=== PATIENT | male | born 1965 | race Caucasian/White ===

== ENCOUNTER 2018-10-21 11:53 | Emergency (ER) | payer SELFPAY ==
--- NOTE | 2018-10-21 13:03 | ER ---
Nurse's Notes [facility] Name: Mauro Parsons Age: 53 yrs Sex: Male : 1965 Arrival Date: 10/21/2018 Time: 11:56 Bed 30 Private MD: out of town, doctor Diagnosis: Cracked tooth Presentation: 10/21 12:03 Presenting complaint: Patient states: i have a toothache on the upper back right, tw2 coming and going for a while, now its constant. Transition of care: patient was not received from another setting of care. Onset of symptoms was October 21, 2018. Risk Assessment: Do you want to hurt yourself or someone else? Patient reports no desire to harm self or others. Initial Sepsis Screen: Does the patient meet any 2 criteria? No. Patient's initial sepsis screen is negative. Does the patient have a suspected source of infection? No. Patient's initial sepsis screen is negative. Care prior to arrival: None. 12:03 Method Of Arrival: Ambulatory tw2 12:03 Acuity: JENNYFER 4 tw2 Triage Assessment: 12:05 General: Appears in no apparent distress. Behavior is calm, cooperative, appropriate tw2 for age. Pain: Complains of pain in upper right third molar. EENT: Reports pain dental pain. Historical: - Allergies: 12:04 No Known Allergies; tw2 - Home Meds: 12:04 lisinopril 10 mg Oral tab 1 tab once daily [Active]; Risperdal 4 mg Oral tab 1 tab once tw2 daily [Active]; Tegretol 200 mg Oral tab 2 tabs every 12 hours [Active]; Neurontin 300 mg Oral cap 1 cap 3 times per day [Active]; - PMHx: 12:04 Hypertension; Depression; Anxiety; tw2 - Immunization history:: Adult Immunizations. - Social history:: Smoking status: Patient uses tobacco products, ecigarette with nicotine. - Ebola Screening: : Patient denies travel to an Ebola-affected area in the 21 days before illness onset. Screenin:00 Abuse screen: Denies threats or abuse. Denies injuries from another. Nutritional kr2 screening: No deficits noted. Tuberculosis screening: No symptoms or risk factors identified. Fall Risk None identified. Assessment: 13:09 General: Appears in no apparent distress. uncomfortable, well groomed, well developed, kr2 well nourished, Behavior is calm, cooperative, appropriate for age. Pain: Complains of pain in upper right third molar Pain radiates to mouth Pain currently is 5 out of 10 on a pain scale. Quality of pain is described as aching, Is continuous, Alleviated by medications, Aggravated by eating, drinking. Neuro: Level of Consciousness is awake, alert, obeys commands, Oriented to person, place, time, situation, Appropriate for age. Cardiovascular: Capillary refill < 3 seconds in bilateral fingers Patient's skin is warm and dry. Respiratory: Airway is patent Respiratory effort is even, unlabored, Respiratory pattern is regular, symmetrical. GI: Patient currently denies nausea, vomiting. EENT: Oral mucosa is moist. Poor dentition noted. Derm: Skin is intact, is healthy with good turgor, Skin is pink, warm \T\ dry. Musculoskeletal: Circulation, motion, and sensation intact. Vital Signs: 12:03 BP 135 / 81; Pulse 98; Resp 17; Temp 98.1(TE); Pulse Ox 97% on R/A; Pain 10/10; tw2 ED Course: 11:56 Patient arrived in ED. sb2 11:56 out of town, doctor is Private Physician. sb2 12:03 Triage completed. tw2 12:04 Arm band placed on. tw2 12:52 Jackeline Crowder, [place] is Primary Nurse. kr2 12:52 [facility] Flores [facility] nh 12:52 Angel Franklin MD is Attending Physician. nh 13:00 Patient has correct armband on for positive identification. Bed in low position. Call kr2 light in reach. Side rails up X 1. Pulse ox on. NIBP on. Door closed. Head of bed elevated. 13:11 No provider procedures requiring assistance completed. Patient did not have IV access kr2 during this emergency room visit. Administered Medications: No medications were administered Outcome: 13:02 Discharge ordered by . nh 13:11 Discharged to home ambulatory. kr2 13:11 Condition: good 13:11 Discharge instructions given to patient, Instructed on discharge instructions, follow up and referral plans. medication usage, Demonstrated understanding of instructions, follow-up care, medications, Prescriptions given X 2. 13:12 Patient left the ED. kr2 Signatures: Alice Flores FNP SOCIAL SERVICE ASSISTANT Jailene Langley, RN RN tw2 Jackeline Crowder, RN RN kr2 Angeles, Kanika sb2
--- NOTE | 2018-10-21 13:03 | EDPHYS ---
Physician Documentation [facility] Name: Mauro Parsons Age: 53 yrs Sex: Male : 1965 Arrival Date: 10/21/2018 Time: 11:56 Bed 30 Private MD: out of town, doctor ED Physician Angel Franklin HPI: 10/21 13:00 This 53 yrs old Male presents to ER via Ambulatory with complaints of nh Toothache. 13:00 The patient presents with broken tooth/teeth. The problem is located in the upper right nh third molar. Onset: The symptoms/episode began/occurred 2 week(s) ago. Duration: The symptoms are continuous. Modifying factors: The symptoms are alleviated by nothing, the symptoms are aggravated by chewing. Associated signs and symptoms: The patient has no apparent associated signs or symptoms. Severity of symptoms: At their worst the symptoms were moderate, just prior to arrival, in the emergency department the symptoms are unchanged. The patient has not experienced similar symptoms in the past. The patient has not recently seen a physician. Historical: - Allergies: 12:04 No Known Allergies; tw2 - Home Meds: 12:04 lisinopril 10 mg Oral tab 1 tab once daily [Active]; Risperdal 4 mg Oral tab 1 tab once tw2 daily [Active]; Tegretol 200 mg Oral tab 2 tabs every 12 hours [Active]; Neurontin 300 mg Oral cap 1 cap 3 times per day [Active]; - PMHx: 12:04 Hypertension; Depression; Anxiety; tw2 - Immunization history:: Adult Immunizations. - Social history:: Smoking status: Patient uses tobacco products, ecigarette with nicotine. - Ebola Screening: : Patient denies travel to an Ebola-affected area in the 21 days before illness onset. ROS: 13:00 Constitutional: Negative for fever, chills, and weight loss, Eyes: Negative for injury, nh pain, redness, and discharge, Neck: Negative for injury, pain, and swelling, Cardiovascular: Negative for chest pain, palpitations, and edema, Respiratory: Negative for shortness of breath, cough, wheezing, and pleuritic chest pain, Abdomen/GI: Negative for abdominal pain, nausea, vomiting, diarrhea, and constipation, Back: Negative for injury and pain, : Negative for injury, bleeding, discharge, and swelling, MS/Extremity: Negative for injury and deformity, Skin: Negative for injury, rash, and discoloration, Neuro: Negative for headache, weakness, numbness, tingling, and seizure, Psych: Negative for depression, anxiety, suicide ideation, homicidal ideation, and hallucinations, Allergy/Immunology: Negative for hives, rash, and allergies, Endocrine: Negative for neck swelling, polydipsia, polyuria, polyphagia, and marked weight changes, Hematologic/Lymphatic: Negative for swollen nodes, abnormal bleeding, and unusual bruising. 13:00 ENT: Positive for Teeth pain Exam: 13:00 Constitutional: This is a well developed, well nourished patient who is awake, alert, nh and in no acute distress. Head/Face: Normocephalic, atraumatic. Eyes: Pupils equal round and reactive to light, extra-ocular motions intact. Lids and lashes normal. Conjunctiva and sclera are non-icteric and not injected. Cornea within normal limits. Periorbital areas with no swelling, redness, or edema. Neck: Trachea midline, no thyromegaly or masses palpated, and no cervical lymphadenopathy. Supple, full range of motion without nuchal rigidity, or vertebral point tenderness. No Meningismus. Chest/axilla: Normal chest wall appearance and motion. Nontender with no deformity. No lesions are appreciated. Cardiovascular: Regular rate and rhythm with a normal S1 and S2. No gallops, murmurs, or rubs. Normal PMI, no JVD. No pulse deficits. Respiratory: Lungs have equal breath sounds bilaterally, clear to auscultation and percussion. No rales, rhonchi or wheezes noted. No increased work of breathing, no retractions or nasal flaring. Abdomen/GI: Soft, non-tender, with normal bowel sounds. No distension or tympany. No guarding or rebound. No evidence of tenderness throughout. Back: No spinal tenderness. No costovertebral tenderness. Full range of motion. Skin: Warm, dry with normal turgor. Normal color with no rashes, no lesions, and no evidence of cellulitis. MS/ Extremity: Pulses equal, no cyanosis. Neurovascular intact. Full, normal range of motion. Neuro: Awake and alert, GCS 15, oriented to person, place, time, and situation. Cranial nerves II-XII grossly intact. Motor strength 5/5 in all extremities. Sensory grossly intact. Cerebellar exam normal. Normal gait. Psych: Awake, alert, with orientation to person, place and time. Behavior, mood, and affect are within normal limits. 13:00 ENT: External ear(s): are unremarkable, Ear canal(s): are normal, TM's: are normal, Nose: is normal, Mouth: is normal, Posterior pharynx: is normal, Dental exam: avulsion, complete, specifically the upper right third molar. Vital Signs: 12:03 BP 135 / 81; Pulse 98; Resp 17; Temp 98.1(TE); Pulse Ox 97% on R/A; Pain 10/10; tw2 MDM: 12:52 Patient medically screened. md 13:00 Data reviewed: vital signs, nurses notes, and as a result, I will discharge patient. md Counseling: I had a detailed discussion with the patient and/or guardian regarding: the historical points, exam findings, and any diagnostic results supporting the discharge/admit diagnosis, the need for outpatient follow up, to return to the emergency department if symptoms worsen or persist or if there are any questions or concerns that arise at home. Administered Medications: No medications were administered Disposition: 13:57 Co-signature as Attending Physician, Angel Franklin MD. rn Disposition: 10/21/18 13:02 Discharged to Home. Impression: Cracked tooth. - Condition is Stable. - Discharge Instructions: Dental Pain. - Prescriptions for Clindamycin HCl 300 mg Oral Capsule - take 1 capsule by ORAL route every 6 hours for 10 days; 40 capsule. Naprosyn 500 mg Oral Tablet - take 1 tablet by ORAL route 2 times per day take with food; 30 tablet. - Medication Reconciliation Form, Thank You Letter, Antibiotic Education, Prescription Opioid Use form. - Follow up: Private Physician; When: 2 - 3 days; Reason: Recheck today's complaints. - Problem is new. - Symptoms are unchanged. Signatures: Alice Flores, REGISTERED NURSE OBSTETRICS REGISTERED NURSE OBSTETRICS md Angel Franklin MD MD rn Wise, Tara, RN RN tw2 Jackeline Crowder RN RN kr2 Corrections: (The following items were deleted from the chart) 13:12 13:02 10/21/2018 13:02 Discharged to Home. Impression: Cracked tooth. Condition is kr2 Stable. Forms are Medication Reconciliation Form, Thank You Letter, Antibiotic Education, Prescription Opioid Use. Follow up: Private Physician; When: 2 - 3 days; Reason: Recheck today's complaints. Problem is new. Symptoms are unchanged. nh
== END 2018-10-21 13:12 | disposition home or self-care (01) ==
LOC: ER 11:53
DX: K03.81 Cracked tooth (principal); I10 Essential (primary) hypertension; F41.9 Anxiety disorder, unspecified; F32.9 Major depressive disorder, single episode, unspecified; Z72.0 Tobacco use
CPT/HCPCS: 99283

== ENCOUNTER 2020-10-06 12:10 | Emergency (ER) | payer OTHER ==
--- NOTE | 2020-10-06 13:13 | RAD REPORT ---
EXAM DESCRIPTION: CT - Head C Spine Mpr Wo Con - 10/06/2020 12:50 pm CLINICAL HISTORY: Numbness and radiculopathy COMPARISON: None. TECHNIQUE: Computed axial tomography of the head and cervical spine was obtained. Sagittal and coronal reconstruction was performed. All CT scans are performed using dose optimization technique as appropriate and may include automated exposure control or mA/KV adjustment according to patient size. FINDINGS: An intracranial bleed is not seen. The ventricles are normal in caliber. An extra-axial fl uid collection is not noted.Fluid within the visualized sinuses and mastoids is not seen A cervical fracture is not visualized. No dislocation is noted. Spondylosis involves C5-6 and C6-7 co nsisting of disc bulge and osteophytes. This results in mild to moderate narrowing of the right neura l foramina. Loss of the normal lordosis of the cervical spine may be secondary to muscle spasm or pos itioning IMPRESSION: No acute intracranial abnormality is seen. A cervical fracture is not visualized. 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
--- NOTE | 2020-10-06 13:41 | ER ---
Nurse's Notes [facility] Name: Mauro Parsons Age: 55 yrs Sex: Male : 1965 Arrival Date: 10/06/2020 Time: 12:12 Bed 16 Private MD: Diagnosis: Radiculopathy, cervical region Presentation: 10/06 12:27 Chief complaint: Patient states: BUE numbness/tingling x 1 week, chronic back pain. sv Coronavirus screen: Client denies travel out of the [place] in the last 14 days. At this time, the client does not indicate any symptoms associated with coronavirus-19. Ebola Screen: No symptoms or risks identified at this time. Initial Sepsis Screen: Does the patient meet any 2 criteria? No. Patient's initial sepsis screen is negative. Does the patient have a suspected source of infection? No. Patient's initial sepsis screen is negative. Risk Assessment: Do you want to hurt yourself or someone else? Patient reports no desire to harm self or others. Onset of symptoms was September 29, 2020. 12:27 Method Of Arrival: Ambulatory sv 12:27 Acuity: JENNYFER 3 sv Historical: - Allergies: 12:29 No Known Allergies; sv - PMHx: 12:29 Anxiety; Depression; Hypertension; Glaucoma; sv - Immunization history:: Flu vaccine is not up to date. - Social history:: Smoking status: Reported history of juuling and/or vaping. Screenin:30 Abuse screen: Denies threats or abuse. Nutritional screening: No deficits noted. vg1 Tuberculosis screening: No symptoms or risk factors identified. Fall Risk No fall in past 12 months (0 pts). No secondary diagnosis (0 pts). No IV (0 pts). Ambulatory Aid- None/Bed Rest/Nurse Assist (0 pts). Gait- Normal/Bed Rest/Wheelchair (0 pts) Mental Status- Oriented to own ability (0 pts). Total Dumont Fall Scale indicates No Risk (0-24 pts). Assessment: 12:30 General: Appears in no apparent distress. Behavior is calm, cooperative. Pain: vg1 Complains of pain in mid upper back Pain radiates to LYNDON arms Pain currently is 8 out of 10 on a pain scale. Neuro: Level of Consciousness is awake, alert, obeys commands, Oriented to person, place, time, situation, Legal Operations Manager are equal bilaterally Speech is normal, Facial symmetry appears normal. Cardiovascular: Patient's skin is warm and dry. Respiratory: Airway is patent Respiratory effort is even, unlabored, Respiratory pattern is regular, symmetrical. GI: No signs and/or symptoms were reported involving the gastrointestinal system. : No signs and/or symptoms were reported regarding the genitourinary system. EENT: No signs and/or symptoms were reported regarding the EENT system. Derm: Skin is pink, warm \T\ dry. Musculoskeletal: Range of motion: intact in all extremities. 12:35 Reassessment: Patient states has hydrocortisone patches on R hip, lower back, and upper vg1 back for pain control. 13:15 Reassessment: Patient went outside to smoke a cigarette. vg1 13:22 Reassessment: Patient appears in no apparent distress at this time. No changes from vg1 previously documented assessment. Patient and/or family updated on plan of care and expected duration. Pain level reassessed. Patient is alert, oriented x 3, equal unlabored respirations, skin warm/dry/pink. Patient back in room. Vital Signs: 12:27 BP 163 / 95; Pulse 71; Resp 16; Temp 99; Pulse Ox 98% ; Weight 104.33 kg; Height 5 ft. sv 10 in. (177.80 cm); Pain 0/10; 13:00 BP 143 / 74; Pulse 74; Resp 14; Pulse Ox 98% on R/A; vg1 12:27 Body Mass Index 33.00 (104.33 kg, 177.80 cm) sv ED Course: 12:12 Patient arrived in ED. ds1 12:24 Love Lester, [place] is Primary Nurse. vg1 12:27 Mateo Marr PA is PHCP. jmm 12:27 Jay Brice MD is Attending Physician. jmm 12:28 Triage completed. sv 12:29 Arm band placed on. sv 12:35 Patient has correct armband on for positive identification. Bed in low position. Call vg1 light in reach. 12:51 CT Head C Spine In Process Unspecified. EDMS 14:10 No provider procedures requiring assistance completed. Patient did not have IV access vg1 during this emergency room visit. Administered Medications: No medications were administered Outcome: 13:41 Discharge ordered by . jmm 14:10 Discharged to home vg1 14:10 Condition: stable 14:10 Discharge instructions given to patient, Instructed on discharge instructions, follow up and referral plans. medication usage, Demonstrated understanding of instructions, follow-up care, medications, Prescriptions given X 1. 14:13 Patient left the ED. vg1 Signatures: Dispatcher [employer] Rox Wall, RN RN Mateo Huang PA PA jmm Sanford, Demi ds1 Love Lester, RN RN vg1
--- NOTE | 2020-10-06 13:41 | EDPHYS ---
Physician Documentation [facility] Name: Mauro Parsons Age: 55 yrs Sex: Male : 1965 Arrival Date: 10/06/2020 Time: 12:12 Bed 16 Private MD: ED Physician Jay Brice HPI: 10/06 12:32 This 55 yrs old Male presents to ER via Ambulatory with complaints of Arm jmm Pain, Back Pain, Numbness. 12:32 The patient or guardian complains of pain. Onset: The symptoms/episode began/occurred jmm gradually, 1 week(s) ago. Modifying factors: The symptoms are alleviated by nothing. the symptoms are aggravated by movement. This is a 55 year old male with a history of anxiety, depression, htn, glaucoma that presents ot the ED with complaints of neck pain with numbness radiating to his arms. Denies weakness. Denies fever. [facility]. . Historical: - Allergies: 12:29 No Known Allergies; sv - PMHx: 12:29 Anxiety; Depression; Hypertension; Glaucoma; sv - Immunization history:: Flu vaccine is not up to date. - Social history:: Smoking status: Reported history of juuling and/or vaping. ROS: 12:32 Constitutional: Negative for fever, chills, and weight loss, Cardiovascular: Negative jmm for chest pain, palpitations, and edema, Respiratory: Negative for shortness of breath, cough, wheezing, and pleuritic chest pain. 12:32 Neck: Positive for pain with movement. 12:32 MS/extremity: Positive for pain. 12:32 All other systems are negative. Exam: 12:32 Constitutional: This is a well developed, well nourished patient who is awake, alert, jmm and in no acute distress. Head/Face: atraumatic. Eyes: EOMI, no conjunctival erythema appreciated ENT: Moist Mucus Membranes Neck: Trachea midline, Supple Chest/axilla: Normal chest wall appearance and motion. Cardiovascular: Regular rate and rhythm. No edema appreciated Respiratory: Normal respirations, no respiratory distress appreciated Abdomen/GI: Non distended, soft Back: Normal ROM Skin: General appearance color normal MS/ Extremity: Moves all extremities, no obvious deformities appreciated, no edema noted to the lower extremities Neuro: Awake and alert, normal gait Psych: Behavior is normal, Mood is normal, Patient is cooperative and pleasant 12:32 Musculoskeletal/extremity: full emr implementation specialist strength bilaterally. 12:32 Skin: Appearance: Color: normal in color. 12:32 Neuro: Orientation: is normal, Mentation: is normal, Memory: is normal. 12:32 Psych: Behavior/mood is pleasant, cooperative. Vital Signs: 12:27 BP 163 / 95; Pulse 71; Resp 16; Temp 99; Pulse Ox 98% ; Weight 104.33 kg; Height 5 ft. sv 10 in. (177.80 cm); Pain 0/10; 13:00 BP 143 / 74; Pulse 74; Resp 14; Pulse Ox 98% on R/A; vg1 12:27 Body Mass Index 33.00 (104.33 kg, 177.80 cm) sv MDM: 12:32 Patient medically screened. estefanía 13:40 Data reviewed: vital signs, nurses notes. Counseling: I had a detailed discussion with matheus the patient and/or guardian regarding: the historical points, exam findings, and any diagnostic results supporting the discharge/admit diagnosis, radiology results, the need for outpatient follow up, to return to the emergency department if symptoms worsen or persist or if there are any questions or concerns that arise at home. Medical screen evaluation completed. [facility] emergency medical condition absent. ED course: Piping Design Specialist strength intact. Ad[facility]. Patient is otherwise given strict return precautions. Patient understood and agrees with the plan of care. . 10/06 12:37 Order name: CT Head C Spine; Complete Time: 13:24 [facility] Administered Medications: No medications were administered Disposition: 10/07 11:50 Co-signature as Attending Physician, Jay Brice MD I agree with the assessment and [facility] plan of care. Disposition: 10/06/20 13:41 Discharged to Home. Impression: Radiculopathy, cervical region. - Condition is Stable. - Discharge Instructions: Cervical Radiculopathy. - Prescriptions for Zanaflex 4 mg Oral Tablet - take 1 tablet by ORAL route every 8 hours As needed; 20 tablet. - Medication Reconciliation Form, Thank You Letter, Antibiotic Education, Prescription Opioid Use form. - Follow up: Private Physician; When: 2 - 3 days; Reason: Recheck today's complaints, Continuance of care, Re-evaluation by your physician. Signatures: Dispatcher [employer] Rox Wall, RN RN Jay Perales MD MD cha Mickail, Joel, PA PA jmm Garcia, Victoria, RN RN vg1 Corrections: (The following items were deleted from the chart) 10/06 14:13 13:41 10/06/2020 13:41 Discharged to Home. Impression: Radiculopathy, cervical region. vg1 Condition is Stable. Forms are Medication Reconciliation Form, Thank You Letter, Antibiotic Education, Prescription Opioid Use. Follow up: Private Physician; When: 2 - 3 days; Reason: Recheck today's complaints, Continuance of care, Re-evaluation by your physician. matheus
[2020-10-08 17:08] VITALS: TEMP 98.2; O2SAT 95
[2020-10-08 17:10] VITALS: BP 130/118
== END 2020-10-06 14:13 | disposition home or self-care (01) ==
LOC: ER 12:10
DX: M54.12 Radiculopathy, cervical region (principal); I10 Essential (primary) hypertension
CPT/HCPCS: 70450; 72125; 99283

== ENCOUNTER 2021-01-12 13:25 | Emergency (ER) | payer OTHER ==
[2021-01-12] MEDS ORDERED: TETRACAINE HCL 0.5% 4ML OPTH ONE ×2 (14:17→15:01)
[2021-01-12] MEDS ORDERED: TIMOLOL MALEATE 0.5% OPTH 5 ML BTL OPTH ONE (15:15)
--- NOTE | 2021-01-12 15:17 | EDPHYS ---
Physician Documentation [facility] Name: Mauro Parsons Age: 55 yrs Sex: Male : 1965 Arrival Date: 01/12/2021 Time: 13:25 Bed 13 Private MD: ED Physician Angel Franklin HPI: 01/12 14:23 This 55 yrs old Male presents to ER via Ambulatory with complaints of Loss Of pm1 Vision, Redness of Eye, Post Surgical Pain. 14:23 The patient is experiencing blurred vision, decreased vision, The patient sustained pm1 None. to the right eye. Onset: The symptoms/episode began/occurred 3 hour(s) ago. Duration: the symptoms are continuous. Aggravated by nothing. Alleviated by nothing. Associated signs and symptoms: Pertinent positives: right eye pain. Severity of symptoms: in the emergency department the symptoms are worse. The patient has been recently seen by a physician: Dr. Melina Galvez MD. Had surgical implant to right eye for glaucoma treatment on . Patient reports onset of pain to right eye last evening and woke up with more right eye pain this AM. 3 hours prior to arrival started to have blurring to right eye vision that was not present after surgery. Historical: - Allergies: 13:40 No Known Allergies; ll1 - PMHx: 13:40 Glaucoma; Depression; Hypertension; Anxiety; ll1 - PSHx: 13:40 glaucoma eye sx; ll1 - Immunization history:: Flu vaccine is up to date. - Social history:: Smoking status: Reported history of juuling and/or vaping. Patient denies any tobacco usage or history of. ROS: 14:23 Constitutional: Negative for fever, chills, and weight loss. pm1 14:23 Cardiovascular: Negative for chest pain, palpitations, and edema, Respiratory: Negative for shortness of breath, cough, wheezing, and pleuritic chest pain. 14:23 MS/Extremity: Negative for injury and deformity, Skin: Negative for injury, rash, and discoloration, Neuro: Negative for headache, weakness, numbness, tingling, and seizure. 14:23 Eyes: Positive for blurry vision, pain, redness, tearing, vision loss, of the right eye. 14:23 Abdomen/GI: Negative for nausea and vomiting. Exam: 14:23 Eyes: Intraocular pressure: right eye = 26mmHg. pm1 14:23 Constitutional: This is a well developed, well nourished patient who is awake, alert, pm1 and in no acute distress. Head/Face: Normocephalic, atraumatic. 14:23 Skin: Warm, dry with normal turgor. Normal color with no rashes, no lesions, and no evidence of cellulitis. MS/ Extremity: Pulses equal, no cyanosis. Neurovascular intact. Full, normal range of motion. 14:23 Eyes: Periorbital structures: bruising to lateral aspect, Pupils: no acute changes, normal size, normal reaction to light, Extraocular movements: intact throughout, Conjunctiva: injected, in the right eye, subconjunctival hemorrhage(s), seen in the right eye, at 4 o'clock, Lids and lashes: appear normal, bilaterally, funduscopic exam reveals no acute changes. 14:23 Cardiovascular: Exam negative for acute changes, Rate: normal, Rhythm: Pulses: no pulse deficits are appreciated. 14:23 Respiratory: Exam negative for acute changes, respiratory distress, shortness of breath. 14:23 Neuro: Exam negative for acute changes, Orientation: is normal, Mentation: is normal, Motor: moves all fours, Gait: is steady, at a normal pace, without difficulty. Vital Signs: 13:37 BP 191 / 108; Pulse 94; Resp 17; Temp 98.7; Pulse Ox 95% ; Weight 102.06 kg; Height 5 ll1 ft. 10 in. (177.80 cm); Pain 7/10; 14:27 BP 180 / 96; Pulse 83; Resp 18; Pulse Ox 97% on R/A; vg1 13:37 Body Mass Index 32.28 (102.06 kg, 177.80 cm) ll1 MDM: 14:36 Patient medically screened. pm1 14:39 Data reviewed: vital signs. pm1 14:43 Physician consultation: MD GUZMAN Butler regarding consult, patient's condition, She is not pm1 able to make a diagnosis over the phone, but based on complaint and presenting symptoms the patient does not need immediate transfer by ambulance to the ID. However she will place an order for him to be seen in the clinic today and tomorrow so that he can come to the clinic for further evaluation anytime today and tomorrow by personal vehicle. There is ophthalmology coverage 15/05 at the ID. If he has blackening of vision he needs to go the clinic immediately. She looked up his surgical procedure and follow up visit and recommended that he start using Cosopt and Alphagan in his right eye as he has been using on his left eye. 15:10 ED course: Patient has been putting Trusopt and alphagan in his right eye already. pm1 Luke wanted alphagan and Cosept. Patient does not have timolol drops. Will administer here in the ER. 15:10 Refusal of service: The patient/guardian displays adequate decision making capability pm1 and despite a detailed discussion of alternatives, benefits, risks, and consequences refuses: visual acuity test. He said that it is a waste of time. 15:27 ED course: instructed the patient to use the timolol along with trusopt so that he will pm1 have both ingredients of cosopt. Dr. Butler wanted him to be put alphagan and cosept in his right eye. Instructed the patient to go to the [facility] eye clinic upon discharge from the ER for further evaluation with a slit lamp and perl programmer so that he can get a diagnosis and get the best treatment possible for his right eye. Informed him that Dr. Butler placed an order for him to be seen today and tomorrow so that he will have access to the clinic due to covid restrictions. Patient said that he would go to the ID clinic now. Instructed him to keep his follow up appointment on unless changed with visit today. Patient verbalized understanding. Administered Medications: 14:45 Drug: Tetracaine Drops 0.5 % 1 drops Route: Ophthalmic; Site: right eye; 1 15:09 CANCELLED (Duplicate Order): timolol 1 drops Ophthalmic once pm1 15:26 Drug: Timolol 0.5 % 1 drops Route: Ophthalmic; Site: right eye; vg1 15:26 Follow up: Response: Medication administered at discharge. 1 Disposition: 15:43 Co-signature as Attending Physician, Angel Franklin MD. rn Disposition: 01/12/21 15:16 Discharged to Home. Impression: Other visual disturbances - right eye blurred vision. - Condition is Stable. - Discharge Instructions: Blurred Vision, Adult, How to Use Eye Drops and Eye Ointments. - Work release form, Medication Reconciliation Form, Thank You Letter, Antibiotic Education, Prescription Opioid Use form. - Follow up: Emergency Department; When: As needed; Reason: Worsening of condition. Follow up: Private Physician; When: 2 - 3 days; Reason: Recheck today's complaints, Continuance of care, Re-evaluation by your physician. - Problem is new. - Symptoms are unchanged. Signatures: Angel Franklin MD MD rn Ced Boyer NP SOIL TECHNICIAN pm1 Love Lester RN RN vg1 Marce Coto RN RN ll1 Corrections: (The following items were deleted from the chart) 15:09 15:02 timolol 1 drops Ophthalmic once ordered. pm1 pm1 15:27 14:35 Visual Acuity ordered. pm1 vg1 15:27 15:16 01/12/2021 15:16 Discharged to Home. Impression: Other visual disturbances - vg1 right eye blurred vision. Condition is Stable. Forms are Medication Reconciliation Form, Thank You Letter, Antibiotic Education, Prescription Opioid Use. Follow up: Emergency Department; When: As needed; Reason: Worsening of condition. Follow up: Private Physician; When: 2 - 3 days; Reason: Recheck today's complaints, Continuance of care, Re-evaluation by your physician. Problem is new. Symptoms are unchanged. pm1
--- NOTE | 2021-01-12 15:17 | ER ---
Nurse's Notes [facility] Name: Mauro Parsons Age: 55 yrs Sex: Male : 1965 Arrival Date: 01/12/2021 Time: 13:25 Bed 13 Private MD: Diagnosis: Other visual disturbances-right eye blurred vision Presentation: 01/12 13:37 Chief complaint: Patient states: R eye redness, bleeding from inner canthus, decreased ll1 vision for 3 hours. [facility] No fever. Coronavirus screen: Client denies travel out of the [place] in the last 14 days. At this time, the client does not indicate any symptoms associated with coronavirus-19. Ebola Screen: Patient denies travel to an Ebola-affected area in the 21 days before illness onset. Initial Sepsis Screen: Does the patient meet any 2 criteria? HR > 90 bpm. No. Patient's initial sepsis screen is negative. Does the patient have a suspected source of infection? Yes: Other: eye. Risk Assessment: Do you want to hurt yourself or someone else? Patient reports no desire to harm self or others. Onset of symptoms was January 12, 2021. 13:37 Method Of Arrival: Ambulatory ll1 13:37 Acuity: JENNYFER 2 ll1 Historical: - Allergies: 13:40 No Known Allergies; ll1 - PMHx: 13:40 Glaucoma; Depression; Hypertension; Anxiety; ll1 - PSHx: 13:40 glaucoma eye sx; ll1 - Immunization history:: Flu vaccine is up to date. - Social history:: Smoking status: Reported history of juuling and/or vaping. Patient denies any tobacco usage or history of. Screenin:27 Abuse screen: Denies threats or abuse. Nutritional screening: No deficits noted. vg1 Tuberculosis screening: No symptoms or risk factors identified. Fall Risk No fall in past 12 months (0 pts). No secondary diagnosis (0 pts). No IV (0 pts). Ambulatory Aid- None/Bed Rest/Nurse Assist (0 pts). Gait- Normal/Bed Rest/Wheelchair (0 pts) Mental Status- Oriented to own ability (0 pts). Total Dumont Fall Scale indicates No Risk (0-24 pts). Assessment: 13:49 General: Appears in no apparent distress. Behavior is calm, cooperative, appropriate ll1 for age. Pain: Complains of pain in R eye Quality of pain is described as aching. EENT: Eyes are tearing on outer aspect of conjuctiva of right eye, iris of right eye and inner aspect of conjuctiva of right eye dark purple blood spot R inner eye canthus. Bruising to lower eyelid. No trauma or falls. . Reports blurred vision in outer aspect of conjuctiva of right eye, iris of right eye and inner aspect of conjuctiva of right eye pain in R eye. 14:26 General: Appears in no apparent distress. comfortable, Behavior is calm, cooperative. vg1 Pain: Complains of pain in right eye Quality of pain is described as sharp. Neuro: Level of Consciousness is awake, alert, obeys commands, Oriented to person, place, time, situation. Cardiovascular: Patient's skin is warm and dry. Respiratory: Airway is patent Respiratory effort is even, unlabored. GI: No signs and/or symptoms were reported involving the gastrointestinal system. : No signs and/or symptoms were reported regarding the genitourinary system. EENT: Eyes are tearing on right eye Reports blurred vision pain. Derm: Skin is intact, is healthy with good turgor. Musculoskeletal: Circulation, motion, and sensation intact. Vital Signs: 13:37 BP 191 / 108; Pulse 94; Resp 17; Temp 98.7; Pulse Ox 95% ; Weight 102.06 kg; Height 5 ll1 ft. 10 in. (177.80 cm); Pain 7/10; 14:27 BP 180 / 96; Pulse 83; Resp 18; Pulse Ox 97% on R/A; vg1 13:37 Body Mass Index 32.28 (102.06 kg, 177.80 cm) ll1 ED Course: 13:25 Patient arrived in ED. as 13:39 Triage completed. ll1 13:40 Arm band placed on Patient placed in an exam room, on a stretcher. ll1 14:12 Ced Boyer NP is PHCP. pm1 14:12 Angel Franklin MD is Attending Physician. pm1 14:19 Love Lester, RN is Primary Nurse. vg1 14:28 Patient has correct armband on for positive identification. Bed in low position. Call vg1 light in reach. 15:27 No provider procedures requiring assistance completed. Patient did not have IV access vg1 during this emergency room visit. Administered Medications: 14:45 Drug: Tetracaine Drops 0.5 % 1 drops Route: Ophthalmic; Site: right eye; vg1 15:09 CANCELLED (Duplicate Order): timolol 1 drops Ophthalmic once pm1 15:26 Drug: Timolol 0.5 % 1 drops Route: Ophthalmic; Site: right eye; vg1 15:26 Follow up: Response: Medication administered at discharge. vg1 Outcome: 15:16 Discharge ordered by MD. pm1 15:27 Discharged to home ambulatory. vg1 15:27 Condition: good 15:27 Discharge instructions given to patient, Instructed on discharge instructions, follow up and referral plans. Demonstrated understanding of instructions, follow-up care. 15:27 Patient left the ED. vg1 Signatures: Ramona Newsome Patrick, NP SUPERINTENDENT GENERAL pm1 Love Lester RN RN vg1 Marce Coto RN RN ll1 Corrections: (The following items were deleted from the chart) 13:48 13:37 Chief complaint: Patient states: R eye redness, bleeding from inner canthus, ll1 decreased vision for 3 hours. Had glaucoma surgery on that eye . No fever. ll1
[2021-01-12 15:31] VITALS: TEMP 98.7
[2021-01-12 15:33] VITALS: BP 180/96; O2SAT 97
== END 2021-01-12 15:27 | disposition home or self-care (01) ==
LOC: ER 13:25
DX: H53.8 Other visual disturbances (principal); Z98.890 Other specified postprocedural states; I10 Essential (primary) hypertension
CPT/HCPCS: 99283

== ENCOUNTER 2021-03-27 15:22 | Emergency (ER) | payer OTHER ==
--- NOTE | 2021-03-27 16:11 | EDPHYS ---
Physician Documentation [facility] Name: Mauro Parsons Age: 55 yrs Sex: Male : 1965 Arrival Date: 03/27/2021 Time: 15:29 Bed 12 Private MD: ED Physician Jay Brice HPI: 03/27 16:01 This 55 yrs old Male presents to ER via Ambulatory [facility]. 16:01 The patient presents with pain, swelling. The problem is located in the frenulum and estefanía upper vermilion border. Onset: The symptoms/episode began/occurred 2 day(s) ago. Duration: The symptoms are continuous, and are steadily getting worse. Modifying factors: The symptoms are alleviated by nothing, the symptoms are aggravated by chewing. Associated signs and symptoms: The patient has no apparent associated signs or symptoms. Severity of symptoms: At their worst the symptoms were mild, moderate, yesterday, in the emergency department the symptoms are unchanged. The patient has experienced similar episodes in the past, several times. Historical: - Allergies: 15:30 No Known Allergies; aa5 - PMHx: 15:30 Depression; Anxiety; Glaucoma; Hypertension; aa5 15:32 "take suboxone"; aa5 - PSHx: 15:30 glaucoma eye sx; aa5 - Immunization history:: Adult Immunizations unknown. - Social history:: Smoking status: Reported history of juuling and/or vaping. - Family history:: not pertinent. ROS: 16:01 Constitutional: Negative for fever, chills, and weight loss, Eyes: Negative for injury, estefanía pain, redness, and discharge, Neck: Negative for injury, pain, and swelling, Cardiovascular: Negative for chest pain, palpitations, and edema, Respiratory: Negative for shortness of breath, cough, wheezing, and pleuritic chest pain, Abdomen/GI: Negative for abdominal pain, nausea, vomiting, diarrhea, and constipation, Back: Negative for injury and pain, : Negative for injury, bleeding, discharge, and swelling, MS/Extremity: Negative for injury and deformity, Skin: Negative for injury, rash, and discoloration, Neuro: Negative for headache, weakness, numbness, tingling, and seizure, Psych: Negative for depression, anxiety, suicide ideation, homicidal ideation, and hallucinations, Allergy/Immunology: Negative for hives, rash, and allergies, Endocrine: Negative for neck swelling, polydipsia, polyuria, polyphagia, and marked weight changes, Hematologic/Lymphatic: Negative for swollen nodes, abnormal bleeding, and unusual bruising. 16:01 ENT: Positive for dental pain, Gum pain Exam: 16:01 Constitutional: This is a well developed, well nourished patient who is awake, alert, estefanía and in no acute distress. Head/Face: Normocephalic, atraumatic. Eyes: Pupils equal round and reactive to light, extra-ocular motions intact. Lids and lashes normal. Conjunctiva and sclera are non-icteric and not injected. Cornea within normal limits. Periorbital areas with no swelling, redness, or edema. Neck: Trachea midline, no thyromegaly or masses palpated, and no cervical lymphadenopathy. Supple, full range of motion without nuchal rigidity, or vertebral point tenderness. No Meningismus. Chest/axilla: Normal chest wall appearance and motion. Nontender with no deformity. No lesions are appreciated. Cardiovascular: Regular rate and rhythm with a normal S1 and S2. No gallops, murmurs, or rubs. Normal PMI, no JVD. No pulse deficits. Respiratory: Lungs have equal breath sounds bilaterally, clear to auscultation and percussion. No rales, rhonchi or wheezes noted. No increased work of breathing, no retractions or nasal flaring. Abdomen/GI: Soft, non-tender, with normal bowel sounds. No distension or tympany. No guarding or rebound. No evidence of tenderness throughout. Back: No spinal tenderness. No costovertebral tenderness. Full range of motion. Male : Normal genitalia with no discharge or lesions. Skin: Warm, dry with normal turgor. Normal color with no rashes, no lesions, and no evidence of cellulitis. MS/ Extremity: Pulses equal, no cyanosis. Neurovascular intact. Full, normal range of motion. Neuro: Awake and alert, GCS 15, oriented to person, place, time, and situation. Cranial nerves II-XII grossly intact. Motor strength 5/5 in all extremities. Sensory grossly intact. Cerebellar exam normal. Normal gait. Psych: Awake, alert, with orientation to person, place and time. Behavior, mood, and affect are within normal limits. 16:01 ENT: Mouth: Oral mucosa: moist, Gums: reddened, on the frenulum. Vital Signs: 15:29 BP 144 / 92; Pulse 80; Resp 18 S; Temp 97.5(TE); Pulse Ox 98% on R/A; Weight 99.79 kg aa5 (R); Height 5 ft. 10 in. (177.80 cm) (R); 15:29 Body Mass Index 31.57 (99.79 kg, 177.80 cm) aa5 MDM: 15:37 [facility]05 Differential diagnosis: dental caries, gingivitis, dental abscess. Data reviewed: vital estefanía signs, nurses notes. Data interpreted: teletypesetter monitor: rate is 80 beats/min, rhythm is regular, Pulse oximetry: on room air is 98 %. Counseling: I had a detailed discussion with the patient and/or guardian regarding: the historical points, exam findings, and any diagnostic results supporting the discharge/admit diagnosis, lab results, radiology results. Administered Medications: 16:16 Drug: Clindamycin 600 mg Route: IM; Site: left gluteus; 16:38 Follow up: Response: No adverse reaction; Medication administered at discharge. 16:16 Drug: [place] (HYDROcodone-acetaminophen) 10 mg-325 mg 1 tabs Route: PO; 16:37 Follow up: Response: No adverse reaction; Medication administered at discharge. 16:17 Drug: Clindamycin 300 mg Route: PO; 16:38 Follow up: Response: No adverse reaction; Medication administered at discharge. Disposition: 03/27/21 16:10 Discharged to Home. Impression: Dental caries, Dental caries, unspecified. - Condition is Stable. - Discharge Instructions: Dental Caries, Adult, Dental Pain, Dental Pain, [id number], Diet and Dental Disease. - Prescriptions for Clindamycin HCl 300 mg Oral Capsule - take 1 capsule by ORAL route every 6 hours for 7 days; 28 capsule. Ibuprofen 600 mg Oral Tablet - take 1 tablet by ORAL route every 6 hours As needed take with food; 20 tablet. - Medication Reconciliation Form, Thank You Letter, Antibiotic Education, Prescription Opioid Use form. - Follow up: Private Physician; When: 2 - 3 days; Reason: Recheck today's complaints, Continuance of care, Re-evaluation by your physician. Follow up: Jorge Barraza DDS; When: 2 - 3 days; Reason: Recheck today's complaints, Re-evaluation by your physician. - Problem is new. - Symptoms have improved. Signatures: Jay Brice MD MD cha Calderon, Audri, RN RN aa5 Jamilah Purdy, RN RN ss Corrections: (The following items were deleted from the chart) 16:39 16:10 03/27/2021 16:10 Discharged to Home. Impression: Dental caries; Dental caries, ss unspecified. Condition is Stable. Forms are Medication Reconciliation Form, Thank You Letter, Antibiotic Education, Prescription Opioid Use. Follow up: Private Physician; When: 2 - 3 days; Reason: Recheck today's complaints, Continuance of care, Re-evaluation by your physician. Follow up: Jorge Barraza; When: 2 - 3 days; Reason: Recheck today's complaints, Re-evaluation by your physician. Problem is new. Symptoms have improved. estefanía
--- NOTE | 2021-03-27 16:11 | ER ---
Nurse's Notes [facility] Name: Mauro Parsons Age: 55 yrs Sex: Male : 1965 Arrival Date: 03/27/2021 Time: 15:29 Bed 12 Private MD: Diagnosis: Dental caries;Dental caries, unspecified Presentation: 03/27 15:29 Chief complaint: Patient states: "I think I have a tooth infection on the right upper aa5 side". Pt reports toothache x 3 days. Coronavirus screen: At this time, the client does not indicate any symptoms associated with coronavirus-19. Ebola Screen: Patient negative for fever greater than or equal to 101.5 degrees Fahrenheit, and additional compatible Ebola Virus Disease symptoms. Initial Sepsis Screen: Does the patient meet any 2 criteria? No. Patient's initial sepsis screen is negative. Does the patient have a suspected source of infection? No. Patient's initial sepsis screen is negative. Risk Assessment: Do you want to hurt yourself or someone else? Patient reports no desire to harm self or others. Onset of symptoms was March 2021. 15:29 Method Of Arrival: Ambulatory aa5 15:29 Acuity: JENNYFER 5 aa5 Historical: - Allergies: 15:30 No Known Allergies; aa5 - PMHx: 15:30 Depression; Anxiety; Glaucoma; Hypertension; aa5 15:32 "take suboxone"; aa5 - PSHx: 15:30 glaucoma eye sx; aa5 - Immunization history:: Adult Immunizations unknown. - Social history:: Smoking status: Reported history of juuling and/or vaping. - Family history:: not pertinent. Screenin:38 Abuse screen: Denies threats or abuse. Denies injuries from another. Nutritional ss screening: No deficits noted. Tuberculosis screening: Never had TB. Fall Risk None identified. Assessment: 15:30 General: Appears in no apparent distress. comfortable, Behavior is calm, cooperative. ss Pain: Complains of pain in upper vermilion border and frenulum. Neuro: Level of Consciousness is awake, alert, obeys commands, Oriented to person, place, time, situation. Respiratory: Airway is patent Respiratory effort is even, unlabored, Respiratory pattern is regular, symmetrical. GI:. GI: Patient currently denies nausea. EENT: Nares are clear Oral mucosa is moist. Derm: Skin is intact, is healthy with good turgor, Skin is pink, warm \\T\\ dry. normal. Musculoskeletal: Denies. Vital Signs: 15:29 BP 144 / 92; Pulse 80; Resp 18 S; Temp 97.5(TE); Pulse Ox 98% on R/A; Weight 99.79 kg aa5 (R); Height 5 ft. 10 in. (177.80 cm) (R); 15:29 Body Mass Index 31.57 (99.79 kg, 177.80 cm) [facility] ED Course: 15:29 Patient arrived in ED. aa5 15:[address] [facility] 15:30 Arm band placed on. [facility] 15:37 Jay Brice MD is Attending Physician. [facility] 16:03 Jamilah Purdy, [place] is Primary Nurse. ss 16:09 Jorge Barraza DDS is Referral Physician. [facility] 16:36 No provider procedures requiring assistance completed. Patient did not have IV access ss during this emergency room visit. 16:38 Patient has correct armband on for positive identification. Bed in low position. Call ss light in reach. Administered Medications: 16:16 Drug: Clindamycin 600 mg Route: IM; Site: left gluteus; ss 16:38 Follow up: Response: No adverse reaction; Medication administered at discharge. 16:16 Drug: [place] (HYDROcodone-acetaminophen) 10 mg-325 mg 1 tabs Route: PO; ss 16:37 Follow up: Response: No adverse reaction; Medication administered at discharge. ss 16:17 Drug: Clindamycin 300 mg Route: PO; ss 16:38 Follow up: Response: No adverse reaction; Medication administered at discharge. Outcome: 16:10 Discharge ordered by . [facility] 16:36 Discharged to home ambulatory, with family. ss 16:36 Condition: good 16:36 Discharge instructions given to patient, family, Instructed on discharge instructions, follow up and referral plans. medication usage, Demonstrated understanding of instructions, follow-up care, medications, Prescriptions given X 2. 16:39 Patient left the ED. ss Signatures: Jay Brice MD MD cha Calderon, Audri, RN RN [facility] Jamilah Purdy RN RN
[2021-03-27] MEDS ORDERED: HYDROCODONE/APAP 10/325 TAB ONE (16:27)
[2021-03-27] MEDS ORDERED: CLINDAMYCIN IV 150 MG/ML (4 mL) VIAL ONE (16:28)
[2021-03-27 16:44] VITALS: BP 144/92; TEMP 97.5; O2SAT 98
== END 2021-03-27 16:39 | disposition home or self-care (01) ==
LOC: ER 15:22
DX: K02.9 Dental caries, unspecified (principal); I10 Essential (primary) hypertension
CPT/HCPCS: 96372; 99283; S0077

== ENCOUNTER 2021-05-10 10:26 | Emergency (ER) | payer OTHER ==
--- NOTE | 2021-05-10 12:17 | ER ---
Nurse's Notes [facility] Name: Mauro Parsons Age: 55 yrs Sex: Male : 1965 Arrival Date: 05/10/2021 Time: 10:29 Bed Waiting Private MD: Diagnosis: ED Course: 05/10 10:29 Patient arrived in ED. am2 11:00 Patient's name was called from ER lobby. No response. aa5 11:20 Patient's name was called from ER lobby. No response. aa5 12:08 Patient's name was called from ER lobby. No response. ca1 12:17 Antonio Sparks MD is Attending Physician. aa5 Administered Medications: No medications were administered Outcome: 12:08 Patient left the ED. aa5 12:08 Eloped from waiting room. aa5 Signatures: Dimple Mcneil RN RN aa5 Annabel Dunlap am2 Aminata Rea RN RN ca1 Corrections: (The following items were deleted from the chart) 12:17 12:17 Patient left the ED. aa5 aa5
== END 2021-05-10 12:17 | disposition left against medical advice (07) ==
LOC: ER 10:26
DX: Z02.9 Encounter for administrative examinations, unspecified (principal)

== ENCOUNTER 2021-10-04 13:44 | Emergency (ER) | payer OTHER ==
[2021-10-04] MEDS ORDERED: CEFEPIME 1 GM/VIAL ONE (15:25)
[2021-10-04] MEDS ORDERED: MORPHINE 4 MG/ML SYR ONE ×2 (15:25→17:11)
[2021-10-04] MEDS ORDERED: NA CHLORIDE 0.9% 100 ML ONE (15:26)
[2021-10-04] MEDS ORDERED: ONDANSETRON 4 MG/2 ML VIAL ONE (15:26)
[2021-10-04] MEDS ORDERED: VANCOMYCIN 1 GM in NA CHLORIDE 0.9% 250 ML IVPB ONE (16:00)
[2021-10-04 16:01] LABS: Absolute Lymphocytes (CBC) 2.2 K/uL (0.7-4.9); Basophils % 0.4 % (0-1.3); Hematocrit 37.7 % (39.6-49.0); Lymphocytes % 21.9 % (15.3-44.8); MPV 8.4 fL (7.6-11.3); RBC Red Blood Cell Count 4.33 M/uL (4.33-5.43)
--- NOTE | 2021-10-04 16:19 | EDPHYS ---
Physician Documentation [facility] Name: Mauro Parsons Age: 56 yrs Sex: Male : 1965 Arrival Date: 10/04/2021 Time: 13:49 Bed 7 Private MD: ED Physician Angel Franklin HPI: 10/04 14:54 This 56 yrs old Male presents to ER via Ambulatory with complaints of Post OP Infection pm1 of hands. 14:54 The patient or guardian complains of pain, that is acute, swelling. The complaints pm1 affect the right wrist, right hand and palmar aspect of right forearm. Context: resulted from wound dehiscence on right hand. Onset: The symptoms/episode began/occurred 2 day(s) ago. Treatment prior to arrival includes: no previous treatment. Modifying factors: The symptoms are alleviated by nothing. Associated signs and symptoms: Pertinent positives: pain, swelling, redness going up forearm, Pertinent negatives: fever. Severity of symptoms: in the emergency department the symptoms are actually worse. The patient has been recently seen by a physician: Patient with carpal tunnel and trigger finger surgery 1 week ago at the [facility]. Patient reports wound dehiscence 2 days ago and onset of swelling pain and redness today. Patient went to the [place] [facility] today and was instructed to go to the [facility] ER. Patient presenting here because he wanted IV antibiotics and pain medication as soon as possible. Historical: - PMHx: 14:28 "take suboxone"; Anxiety; Depression; Glaucoma; Hypertension; jh5 - Immunization history:: Adult Immunizations up to date. - Social history:: Smoking status: Patient reports the use of cigarette tobacco products, electric cigarrette. ROS: 14:54 Constitutional: Negative for fever, chills, and weight loss. pm1 14:54 Cardiovascular: Negative for chest pain, palpitations, and edema, Respiratory: Negative pm1 for shortness of breath, cough, wheezing, and pleuritic chest pain, Abdomen/GI: Negative for abdominal pain, nausea, vomiting, diarrhea, and constipation. 14:54 MS/extremity: Positive for pain, swelling, of the right hand. 14:54 Skin: Positive for swelling, of the right hand, redness streaking up right forearm. 14:54 Neuro: Positive for numbness, of the right middle finger and right index finger, not worse or better compared to prior to surgery. 14:54 All other systems are negative. Exam: 14:54 Constitutional: This is a well developed, well nourished patient who is awake, alert, pm1 and in no acute distress. Head/Face: Normocephalic, atraumatic. 14:54 Cardiovascular: Exam negative for acute changes, Rate: normal, Rhythm: regular, Pulses: no pulse deficits are appreciated. 14:54 Respiratory: Exam negative for acute changes, respiratory distress, shortness of breath. 14:54 Musculoskeletal/extremity: 14:54 Skin: Appearance: normal except for affected area, Dehiscence to surgical wound on right palm proximal to base of right index finger. Lymphangitis present on right forearm. Swelling present to palm of right hand. 14:54 Neuro: Exam negative for acute changes, Orientation: is normal, Mentation: is normal, Motor: moves all fours, Gait: is steady, at a normal pace, without difficulty. Vital Signs: 14:23 BP 164 / 93; Pulse 72; Resp 16; Temp 98.7; Pulse Ox 100% ; Weight 99.79 kg; Height 5 5 ft. 10 in. (177.80 cm); 15:16 BP 167 / 90; Pulse 75; Resp 16; Pulse Ox 98% ; vg1 15:45 BP 161 / 80; Pulse 66; Resp 16; Pulse Ox 100% ; vg1 16:45 BP 151 / 84; Pulse 71; Resp 18; Pulse Ox 100% ; iw 20:43 BP 161 / 82; Pulse 83; Resp 14; Pulse Ox 95% on R/A; Pain 6/10; tw5 20:43 Pain 6/10; tw5 22:00 BP 152 / 78; Pulse 70; Resp 18; Temp 99.1(O); Pulse Ox 100% on R/A; Pain 8/10; lp1 14:23 Body Mass Index 31.57 (99.79 kg, 177.80 cm) [facility] MDM: 15:34 Patient medically screened. pm1 16:16 Data reviewed: vital signs. Data interpreted: Pulse oximetry: on room air is 100 %. pm1 Interpretation: normal. Counseling: I had a detailed discussion with the patient and/or guardian regarding: the historical points, exam findings, and any diagnostic results supporting the discharge/admit diagnosis, lab results, the need to transfer to another facility, [facility] does not immediately have the required specialist, Hand surgery performed at the [place]. 21:35 Physician consultation: MD Martinez was contacted at 21:37, regarding regarding pm1 transfer, patient's condition, and will see patient. 10/04 14:30 Order name: Blood Culture Adult (2) pm1 10/04 14:30 Order name: CBC with Diff; Complete Time: 16:06 pm1 10/04 14:30 Order name: CMP; Complete Time: 16:39 pm1 10/04 14:31 Order name: COVID-19 (Coronavirus) Document "Date of Onset" if Symptomatic pm1 10/04 17:00 Order name: SARS-COV-2 RT PCR; Complete Time: 18:05 EDMS 10/04 16:19 Order name: Hand Right 3 View XRAY; Complete Time: 18:05 pm1 10/04 14:30 Order name: IV Saline Lock; Complete Time: 15:52 pm1 Administered Medications: 15:44 Drug: Zofran (Ondansetron) 4 mg Route: IVP; Site: left forearm; vg1 17:45 Follow up: Response: No adverse reaction vg1 15:46 Drug: morphine 4 mg Route: IVP; Site: left forearm; vg1 16:45 Follow up: Response: No adverse reaction; No change in condition vg1 15:47 Drug: Cefepime 1 grams Route: IVPB; Rate: 200 ml/hr; Infused Over: 30 mins; Site: left vg1 forearm; 16:20 Follow up: Response: No adverse reaction; IV Status: Completed infusion; IV Intake: vg1 100ml 16:20 Drug: vancoMYCIN 1 grams Route: IVPB; Infused Over: 2 hrs; Site: left forearm; vg1 20:43 Follow up: Response: No adverse reaction; IV Status: Completed infusion tw5 17:17 Drug: morphine 4 mg Route: IVP; Site: left forearm; ll3 17:46 Follow up: Response: No adverse reaction; Pain is unchanged, physician notified vg1 17:49 Drug: morphine 2 mg Route: IVP; Site: left forearm; vg1 18:30 Follow up: Response: No adverse reaction; No change in condition vg1 20:13 Drug: Phenergan (promethazine) 12.5 mg Route: IVP; Site: left forearm; vg1 20:43 Follow up: Response: No adverse reaction tw5 20:15 Drug: Dilaudid (HYDROmorphone) 0.5 mg Route: IVP; Site: left forearm; vg1 20:43 Follow up: Pain 6/10 Adult; Response: No adverse reaction; Pain is decreased tw5 22:19 Drug: Dilaudid (HYDROmorphone) 0.5 mg {Note: Verbal order per Stefan Boyer NP.} Route: lp1 IVP; Site: left forearm; 22:20 Follow up: Response: Medication administered at discharge. lp1 22:20 Drug: NS 0.9% 1000 ml Route: IV; Rate: 100 ml/hr; Site: left forearm; lp1 22:20 Follow up: IV Status: Infusion continued upon transfer lp1 Disposition: 10/05 07:19 Co-signature as Attending Physician, Angel Franklin MD I agree with the assessment and rn plan of care. Attestation: The patient's history, exam findings, diagnostics, and a summary of any interventions or procedures was reviewed in detail with Ced Boyer NP. Disposition Summary: 10/04/21 16:18 Transfer Ordered Transfer Location: [facility] pm1 Reason: Higher level of care pm1 Condition: Stable pm1 Problem: new pm1 Symptoms: have improved pm1 Accepting Physician: (10/04/21 22:24) lp1 Diagnosis - Cellulitis of right upper limb - right hand pm1 - Dehiscence of surgical wound right hand pm1 Forms: - Medication Reconciliation Form pm1 - SBAR form pm1 Signatures: Dispatcher [employer] Angel Zacarias MD MD rn Pena, Laura RN RN lp1 Ced Boyer NP SAP SECURITY ARCHITECT pm1 Love Lester RN RN vg1 Arianne Hernandez RN RN jh5 Harriet Armenta RN RN 3 Kanwal Collado tw5 Corrections: (The following items were deleted from the chart) 10/04 16:19 16:18 pm1 pm1 16:43 14:54 The patient has been recently seen by a physician: Patient with carpal tunnel pm1 surgery 1 week ago at the [facility]. Patient reports wound dehiscence 2 days ago and onset of swelling pain and redness today. Patient went to the [place] clinic today and was instructed to go to the [facility] ER. Patient presenting here because he wanted IV antibiotics and pain medication as soon as possible, pm1 17:00 14:31 CORONAVIRUS ordered. EDMS EDMS 22:24 16:19 MD pm1 lp1
--- NOTE | 2021-10-04 16:19 | ER ---
Nurse's Notes [facility] Name: Mauro Parsons Age: 56 yrs Sex: Male : 1965 Arrival Date: 10/04/2021 Time: 13:49 Bed 7 Private MD: Diagnosis: Cellulitis of right upper limb-right hand;Dehiscence of surgical wound right hand Presentation: 10/04 14:23 Chief complaint: Patient states: right hand stitches busted open (surgery a week ago). jh5 Wrist is swollen and red line running up the arm. Coronavirus screen: Vaccine status: Patient reports receiving the 2nd dose of the covid vaccine. Client denies travel out of the [place] in the last 14 days. Ebola Screen: Patient negative for fever greater than or equal to 101.5 degrees Fahrenheit, and additional compatible Ebola Virus Disease symptoms Patient denies exposure to infectious person. Patient denies travel to an Ebola-affected area in the 21 days before illness onset. Initial Sepsis Screen: Does the patient meet any 2 criteria? No. Patient's initial sepsis screen is negative. Does the patient have a suspected source of infection? Yes: Skin breakdown/wound. Risk Assessment: Do you want to hurt yourself or someone else? Patient reports no desire to harm self or others. Onset of symptoms was September 29, 2021. 14:23 Method Of Arrival: Ambulatory [facility] 14:23 Acuity: JENNYFER 3 5 Triage Assessment: 14:29 General: Appears in no apparent distress. uncomfortable, unkempt, Behavior is calm, jh5 cooperative, appropriate for age. Pain: Complains of pain in left hand. Historical: - PMHx: 14:28 "take suboxone"; Anxiety; Depression; Glaucoma; Hypertension; jh5 - Immunization history:: Adult Immunizations up to date. - Social history:: Smoking status: Patient reports the use of cigarette tobacco products, electric cigarrette. Screenin:16 Abuse screen: Denies threats or abuse. Nutritional screening: No deficits noted. vg1 Tuberculosis screening: No symptoms or risk factors identified. Fall Risk No fall in past 12 months (0 pts). No secondary diagnosis (0 pts). IV access (20 points). Ambulatory Aid- None/Bed Rest/Nurse Assist (0 pts). Gait- Normal/Bed Rest/Wheelchair (0 pts) Mental Status- Oriented to own ability (0 pts). Total Dumont Fall Scale indicates No Risk (0-24 pts). Assessment: 15:16 General: Appears in no apparent distress. comfortable, Behavior is calm, cooperative. vg1 Pain: Complains of pain in right hand Pain currently is 10 out of 10 on a pain scale. Neuro: Level of Consciousness is awake, alert, obeys commands, Oriented to person, place, time, situation. Cardiovascular: Capillary refill is > 3 seconds in right fingers. Respiratory: Airway is patent Respiratory effort is even, unlabored. GI: No signs and/or symptoms were reported involving the gastrointestinal system. : No signs and/or symptoms were reported regarding the genitourinary system. EENT: No signs and/or symptoms were reported regarding the EENT system. Derm: Skin temperature is warm Wound noted palm of right hand Rash noted that is red, on palmar aspect of right forearm Pt had stitches placed x1 week ago that dehisced. site appears to be red. Musculoskeletal: Swelling present in right hand. 17:33 Reassessment: Patient appears in no apparent distress at this time. No changes from iw previously documented assessment. Patient and/or family updated on plan of care and expected duration. Pain level reassessed. Patient is alert, oriented x 3, equal unlabored respirations, skin warm/dry/pink. 17:46 Reassessment: Received VO from Merlin ORLANDO to administer Morphine 2 mg IVP x1. vg1 20:43 General: Patient refuses hospital gown and EKG monitoring. . General: Reports " I can tw5 hardly bend my hand, and I can hardly get any sleep." Upon entry to the room patient was sleeping comfortably, snoring. Pain: Pain currently is 6 out of 10 on a pain scale. Pain: Complains of pain in right hand. Respiratory: Airway is patent Trachea midline Respiratory effort is even, unlabored. 22:01 Reassessment: Patient appears in no apparent distress at this time. Patient appears to [facility] be resting comfortably. 22:03 Reassessment: [facility] at bedside; Report given to Jorge at [place] for transfer. lp1 22:15 Reassessment: Patient reports pain to right palm of hand and forearm. lp1 Vital Signs: 14:23 BP 164 / 93; Pulse 72; Resp 16; Temp 98.7; Pulse Ox 100% ; Weight 99.79 kg; Height 5 [facility] ft. 10 in. (177.80 cm); 15:16 BP 167 / 90; Pulse 75; Resp 16; Pulse Ox 98% ; vg1 15:45 BP 161 / 80; Pulse 66; Resp 16; Pulse Ox 100% ; vg1 16:45 BP 151 / 84; Pulse 71; Resp 18; Pulse Ox 100% ; iw 20:43 BP 161 / 82; Pulse 83; Resp 14; Pulse Ox 95% on R/A; Pain 6/10; tw5 20:43 Pain 6/10; tw5 22:00 BP 152 / 78; Pulse 70; Resp 18; Temp 99.1(O); Pulse Ox 100% on R/A; Pain 8/10; lp1 14:23 Body Mass Index 31.57 (99.79 kg, 177.80 cm) [facility] ED Course: 13:49 Patient arrived in ED. mr 14:28 Triage completed. 5 14:54 Ced Boyer NP is PHCP. pm1 14:54 Angel Franklin MD is Attending Physician. pm1 15:16 Love Lester, RN is Primary Nurse. vg1 15:16 Patient has correct armband on for positive identification. Bed in low position. Call vg1 light in reach. Side rails up X 1. 15:16 No provider procedures requiring assistance completed. vg1 15:19 Arm band placed on. vg1 15:40 Inserted saline lock: 20 gauge in left forearm, using aseptic technique. Blood vg1 collected. 15:40 Initial lab(s) drawn, by me, sent to lab. First set of blood cultures drawn by me. vg1 17:52 Hand Right 3 View XRAY In Process Unspecified. EDMS 18:06 initiated transfer to [facility]. bd 19:20 Primary Nurse role handed off by Love Lester, RN tw5 19:20 Kanwal Collado is Primary Nurse. tw5 20:20 contacted the [facility] spoke to David to check on the status of the transfer. He stated " mw2 I'm still working on it and will give you a call back.". 20:43 transfer approval from receiving facility. tw5 20:43 Pulse ox on. NIBP on. Door closed. Noise minimized. Moved to private room. Warm blanket tw5 given. Verbal reassurance given. 20:45 COVID-19 (Coronavirus) Document "Date of Onset" if Symptomatic Sent. tw5 20:45 Blood Culture Adult (2) Sent. tw5 21:33 connected Ced Boyer NP with the Doctor from the [place] center. mw2 21:34 administrative approval given by David Overton/ patient has been accepted to the [address]/ Dr. Martinez accepted the patient in transfer/ report to be called to [phone]. 22:24 Patient transferred, IV remains in place. lp1 Administered Medications: 15:44 Drug: Zofran (Ondansetron) 4 mg Route: IVP; Site: left forearm; vg1 17:45 Follow up: Response: No adverse reaction vg1 15:46 Drug: morphine 4 mg Route: IVP; Site: left forearm; vg1 16:45 Follow up: Response: No adverse reaction; No change in condition vg1 15:47 Drug: Cefepime 1 grams Route: IVPB; Rate: 200 ml/hr; Infused Over: 30 mins; Site: left vg1 forearm; 16:20 Follow up: Response: No adverse reaction; IV Status: Completed infusion; IV Intake: vg1 100ml 16:20 Drug: vancoMYCIN 1 grams Route: IVPB; Infused Over: 2 hrs; Site: left forearm; vg1 20:43 Follow up: Response: No adverse reaction; IV Status: Completed infusion tw5 17:17 Drug: morphine 4 mg Route: IVP; Site: left forearm; ll3 17:46 Follow up: Response: No adverse reaction; Pain is unchanged, physician notified vg1 17:49 Drug: morphine 2 mg Route: IVP; Site: left forearm; vg1 18:30 Follow up: Response: No adverse reaction; No change in condition vg1 20:13 Drug: Phenergan (promethazine) 12.5 mg Route: IVP; Site: left forearm; vg1 20:43 Follow up: Response: No adverse reaction tw5 20:15 Drug: Dilaudid (HYDROmorphone) 0.5 mg Route: IVP; Site: left forearm; vg1 20:43 Follow up: Pain 6/10 Adult; Response: No adverse reaction; Pain is decreased tw5 22:19 Drug: Dilaudid (HYDROmorphone) 0.5 mg {Note: Verbal order per Stefan Boyer NP.} Route: lp1 IVP; Site: left forearm; 22:20 Follow up: Response: Medication administered at discharge. lp1 22:20 Drug: NS 0.9% 1000 ml Route: IV; Rate: 100 ml/hr; Site: left forearm; lp1 22:20 Follow up: IV Status: Infusion continued upon transfer lp1 Intake: 16:20 IV: 100ml; Total: 100ml. vg1 Outcome: 16:18 ER care complete, transfer ordered by . pm1 22:24 Transferred by ground EMS to [facility] Transfer form completed. lp1 X-rays sent w/ patient. 22:24 Condition: stable 22:24 Instructed on the need for transfer. 22:24 Patient left the ED. lp1 Signatures: Dispatcher [employer] EDMS Xiomara Arizmendi Mary mr Williams, Irene, RN [place] iw Linda Patton RN RN lp1 Ced Boyer NP [employer] pm1 Annabella Louis mw2 Love Lester RN RN vg1 Kanwal Collado tw5 Arianne Hernandez RN RN jh5 Harriet Armenta RN RN ll3
[2021-10-04 16:32] LABS: ALT/SGPT 18 U/L (12-78); AST/SGOT 13 U/L (15-37); Albumin 3.4 g/dL (3.4-5.0); Alkaline Phosphatase 115 U/L (45-117); BUN Blood Urea Nitrogen 7 mg/dL (7-18); Bicarbonate 31 mmol/L (21-32); Bilirubin Total 0.3 mg/dL (0.2-1.0); Glucose Level 108 mg/dL (74-106); Protein, Total 7.1 g/dL (6.4-8.2); Sodium Level 138 mmol/L (136-145)
[2021-10-04] MEDS ORDERED: MORPHINE 2 MG/ML SYR ONE (17:44)
--- NOTE | 2021-10-04 17:57 | RAD REPORT ---
EXAM DESCRIPTION: RAD - Hand Right 3 View - 10/04/2021 5:52 pm CLINICAL HISTORY: SWELLING Pain and swelling COMPARISON: No comparisons FINDINGS: Soft tissue swelling is seen about the hand and wrist. Second finger soft tissue swelling also present. No fracture or dislocation. No evidence of osteomyelitis.
[2021-10-04] MEDS ORDERED: PROMETHAZINE INJ 25 MG/ML AMP ONE (20:09)
[2021-10-04] MEDS ORDERED: HYDROMORPHONE HCL 1 MG/ML INJ ONE ×2 (20:10→22:14)
[2021-10-04] MEDS ORDERED: NA CHLORIDE 0.9% 1,000 ML ONE (22:14)
[2021-10-04 23:01] VITALS: O2SAT 100
[2021-10-04 23:03] VITALS: BP 161/80
[2021-10-04 23:07] VITALS: TEMP 99.1
== END 2021-10-04 22:24 ==
LOC: ER 13:44
DX: L03.113 Cellulitis of right upper limb (principal); Z20.822 Contact with and (suspected) exposure to COVID-19; Z72.0 Tobacco use
CPT/HCPCS: 96365; 96367; 87040 ×2; 85025; 36415; 80053; 73130; 96375; 99285; 96366; U0003; J2550; J3370; J2270; J1170 ×2; J7050; J7030; J2405; J0692

== ENCOUNTER 2021-10-05 12:48 | Emergency (ER) | payer OTHER ==
--- NOTE | 2021-10-05 15:49 | ER ---
Nurse's Notes [facility] Name: Mauro Parsons Age: 56 yrs Sex: Male : 1965 Arrival Date: 10/05/2021 Time: 13:00 Bed Waiting Private MD: Diagnosis: Presentation: 10/05 13:07 Chief complaint: Patient states: was seen yeesterday in references to infection after jh6 surgery to rt hand. states that the swelling to hand has gotten worse this am. Coronavirus screen: Vaccine status: Patient reports receiving the 2nd dose of the covid vaccine. Ebola Screen: No symptoms or risks identified at this time. Initial Sepsis Screen: Does the patient meet any 2 criteria? No. Patient's initial sepsis screen is negative. Does the patient have a suspected source of infection? Yes: Bone or joint infection. Risk Assessment: Do you want to hurt yourself or someone else? Patient reports no desire to harm self or others. Onset of symptoms was October 04, 2021. 13:07 Method Of Arrival: Ambulatory [facility] 13:07 Acuity: JENNYFER 3 [facility] Triage Assessment: 13:11 General: Appears in no apparent distress. Behavior is calm, cooperative, Reports jh6 swelling to rt hand noted. - Immunization history:: Adult Immunizations up to date. - Social history:: Smoking status: Reported history of juuling and/or vaping. Assessment: 14:58 Reassessment: pt not in lobby when called. Vital Signs: 13:07 BP 165 / 91; Pulse 79; Resp 17; Temp 98.7(O); Pulse Ox 100% ; Weight 99.79 kg; Height 5 [facility] ft. 10 in. (177.80 cm); Pain 0/10; 13:07 Body Mass Index 31.57 (99.79 kg, 177.80 cm) [facility] ED Course: 13:00 Patient arrived in ED. ds1 13:11 Triage completed. [facility] 13:12 Arm band placed on left wrist. [facility] Administered Medications: No medications were administered Outcome: 15:48 Patient left the ED. Signatures: Sachi Lozano ds1 Gerri Subramanian RN RN Jamilah Purdy RN RN Jina Duarte RN RN [facility]
[2021-10-05 16:00] VITALS: BP 165/91; TEMP 98.7; O2SAT 100
== END 2021-10-05 15:48 | disposition left against medical advice (07) ==
LOC: ER 12:48
DX: Z53.21 Procedure and treatment not carried out due to patient leaving prior to being seen by health care provider (principal)
CPT/HCPCS: 99281

== ENCOUNTER 2024-04-27 12:42 | Emergency (ER) | payer OTHER ==
[2024-04-27] MEDS ORDERED: NALOXONE 0.4 MG/ML VIAL ONE (12:53)
[2024-04-27] MEDS ORDERED: NA CHLORIDE 0.9% 1,000 ML ONE (13:12)
[2024-04-27 13:19] LABS: Absolute Eosinophils 0.6 K/uL (0-0.5); Absolute Lymphocytes (CBC) 1.1 K/uL (0.7-4.9); Absolute Monocytes 0.8 K/uL (0.1-1.3); Absolute Neutrophil 9.3 K/uL (1.8-8.0); Basophils % 0.2 % (0-1.3); Eosinophils % 4.9 % (0-4.4); Hematocrit 35.2 % (39.6-49.0); Hemoglobin 11.2 g/dL (13.6-17.9); Lymphocytes % 9.2 % (15.3-44.8); MCH 27.1 pg (27.0-35.0); MCV 84.8 fL (80-100); MPV 8.7 fL (7.6-11.3); Monocytes % 6.9 % (3.3-12.3); Neutrophils % 78.8 % (41.7-73.7); Platelets 228 thou/uL (152-406); RBC Red Blood Cell Count 4.15 M/uL (4.33-5.43); Red Cell Distribution Width 15.6 % (12.1-15.2)
[2024-04-27 13:23] LABS: PT Prothrombin Time 12.4 SECONDS (9.4-12.5); Protime INR 1.13
[2024-04-27 13:35] LABS: ALT/SGPT 21 U/L (16-61); AST/SGOT 21 U/L (15-37); Albumin 3.2 g/dL (3.4-5.0); Alkaline Phosphatase 127 U/L (45-117); Anion Gap 9.2 mEq/L (5.0-15.0); BUN Blood Urea Nitrogen 17 mg/dL (7-18); Bicarbonate 28 mEq/L (21-32); Bilirubin Total 0.3 mg/dL (0.2-1.0); Globulin 3.2 g/dL (2.3-3.5); Glomerular Filtration Rate 37 ml/min (=/>90); Glucose Level 152 mg/dL (74-106); Potassium 4.2 mEq/L (3.5-5.1); Protein, Total 6.4 g/dL (6.4-8.2); Sodium Level 135 mEq/L (136-145)
[2024-04-27 13:37] LABS: Specific Gravity 1.022 (1.005-1.030); Sqamous Epithelial <5 /HPF (None Seen); Urine Bacteria None Seen /HPF (<20); Urine Bilirubin NEGATIVE (Negative); Urine Blood Negative (Negative); Urine Clarity Extremely Turbid (Clear); Urine Color Yellow (Yellow); Urine Culture Reflex Order NOT NEEDED; Urine Glucose TRACE (Negative); Urine Ketones NEGATIVE (Negative); Urine Microscopic Reflex YN ORDER UMIC; Urine Mucus Slight /HPF (None Seen); Urine Nitrite NEGATIVE (Negative); Urine Protein 1+ (Negative); Urine RBC <5 /HPF (None Seen); Urine Sperm Present (None Seen); Urine Urobilinogen Normal (Normal); Urine WBC <5 /HPF (<5)
[2024-04-27 13:37] LABS: Bilirubin Direct < 0.2 mg/dL (0-0.2); Bilirubin Indirect, Calculated 0.1 mg/dL (0.2-0.8)
[2024-04-27 13:42] LABS: Barbiturates NEGATIVE (NEGATIVE); Benzodiazepines POSITIVE (NEGATIVE); Cocaine NEGATIVE (NEGATIVE); METHAMPHETAM NEGATIVE (NEGATIVE); Methadone NEGATIVE (NEGATIVE); Opiates NEGATIVE (NEGATIVE); Phencyclidine NEGATIVE (NEGATIVE); THC Cannibis POSITIVE (NEGATIVE)
[2024-04-27 14:00] LABS: SARS-CoV-2 Antigen CONTROL BLUE LINE VIS/BG OK; SARS-CoV-2 Antigen Rapid Res Negative (Negative)
--- NOTE | 2024-04-27 14:24 | RAD REPORT ---
EXAM DESCRIPTION: CT - Head Brain Wo Cont - 04/27/2024 1:41 pm CLINICAL HISTORY: AMS Headache, drowsiness COMPARISON: <Comparisons> TECHNIQUE: All CT scans are performed using dose optimization technique as appropriate and may inclu de automated exposure control or mA/KV adjustment according to patient size. FINDINGS: No intracranial hemorrhage, hydrocephalus or extra-axial fluid collection.No areas of brai n edema or evidence of midline shift. The paranasal sinuses and mastoids are clear. The calvarium is intact. IMPRESSION: No acute intracranial abnormality.
--- NOTE | 2024-04-27 15:39 | ER ---
Nurse's Notes [facility] Name: Mauro Parsons Age: 58 yrs Sex: Male : 1965 Arrival Date: 04/27/2024 Time: 12:42 Bed 13 Private MD: Diagnosis: Adverse effect of benzodiazepines Presentation: 04/27 12:41 Chief complaint: EMS states: Altered mental status, weakness and urinary incontinence nj1 since . Fall today. EMS reports that mother told them pt normally has slurred speech, that is his baseline. 12:41 Coronavirus screen: Unknown. Ebola Screen: Unable to complete the Ebola screening nj1 because: The patient does not understand the questions being asked. Initial Sepsis Screen: Does the patient meet any 2 criteria? Altered Mental Status. No. Patient's initial sepsis screen is negative. Does the patient have a suspected source of infection? No. Patient's initial sepsis screen is negative. Risk Assessment: Do you want to hurt yourself or someone else? Patient reports no desire to harm self or others. Onset of symptoms was April 25, 2024. 12:41 Method Of Arrival: EMS: [facility] nj1 12:41 Acuity: JENNYFER 2 nj1 12:41 Care prior to arrival: Medication(s) given: Normal saline infusion, 500 mL, order to nj1 continue fluids per Dr Franklin IV initiated. 20 GA, in the left forearm, Oxygen administered. via nasal cannula. Historical: - Allergies: 13:40 No Known Allergies; nj1 - Home Meds: 13:40 Suboxone sublingual [Active]; nj1 - Immunization history:: Adult Immunizations unknown. - Infectious Disease History:: unable to obtain. - Family history:: not pertinent. - Social history:: Smoking status: unknown. - Hospitalizations: : No recent hospitalization is reported. Screenin:41 [facility] ED Fall Risk Assessment (Adult) History of falling in the last 3 months, nj1 including since admission Yes- fall prone (multiple falls) (3 pts) Confusion or Disorientation Yes (5 pts) Intoxicated or Sedated No (0 pts) Impaired Gait Yes (1 pt) Mobility Assist Device Used No (0 pt) Altered Elimination Yes (1 pt) Score/Fall Risk Level 3 or more points = High Risk Oriented to surroundings, Maintained a safe environment, Educated pt \\T\\ family on fall prevention, incl call for assistance when getting out of bed, Hourly rounding (assess needs \\T\\ fall precautionary measures) done, Used ambulatory aids as needed (educated on \\T\\ assisted with), Remained w/in arm's length of patient and in sight while toileting, Remained with patient while ambulating, Utilized family, sitter, or virtual strand and binder controller as indicated. 12:41 Abuse screen: Denies threats or abuse. Denies injuries from another. Nutritional nj1 screening: No deficits noted. Tuberculosis screening: No symptoms or risk factors identified. Assessment: 12:45 General: Appears Behavior is calm, cooperative. Pain: Denies pain. Neuro: Level of nj1 Consciousness is lethargic, Oriented to person, place, Moves all extremities. Speech is slurred, Facial symmetry appears normal, Pupils are Pupil Size: R 4mm, L 2mm sluggish, Reports Fatigue. Cardiovascular: Patient's skin is warm and dry. Rhythm is regular. Respiratory: Airway is patent Respiratory effort is even, unlabored. 13:10 Reassessment: Reports taking Xanax, states [address] Franklin at bedside. nj1 13:45 Reassessment: In CT scan. nj1 14:00 Reassessment: No changes from previously documented assessment. nj1 14:59 Reassessment: Patient appears in no apparent distress at this time. No changes from [facility] previously documented assessment. 15:15 Reassessment: Patient appears in no apparent distress at this time. Patient is alert, nj1 oriented x 3, equal unlabored respirations, skin warm/dry/pink. Pt out of bed, has removed monitoring devices, states "i have to shit". This RN assists patient so he can walk to restroom. 15:35 Reassessment: Pt still in restroom. no s/s of distress noted. denies help. awaiting for nj1 him to come back to room to continue monitoring. Vital Signs: 12:41 BP 73 / 43; Pulse 79; Resp 10; Pulse Ox 94% on 4 lpm NC; Weight 122.47 kg; Height 5 ft. nj1 11 in. ; 13:06 BP 83 / 49; Pulse 79; Resp 12 S; Pulse Ox 97% on 4 lpm NC; MAP 61 mmHg; nj1 13:20 BP 92 / 59; Pulse 80; Resp 14; Pulse Ox 95% on 4 lpm NC; MAP 72 mmHg; nj1 14:00 BP 103 / 78; Pulse 74; Resp 18; Pulse Ox 97% on 4 lpm NC; MAP 87 mmHg; nj1 14:29 BP 123 / 73; Pulse 82; Resp 16; Pulse Ox 100% on 4 lpm NC; nj1 14:59 BP 115 / 84; Pulse 83; Resp 17; Pulse Ox 99% on 4 lpm NC; nj1 12:41 Body Mass Index 37.66 (122.47 kg, 180.34 cm) nj1 ED Course: 12:41 Maintain EMS IV. Dressing intact. Site clean \\T\\ dry. Gauge \\T\\ site: 20 L FA. IV is patent.nj 1 12:47 Patient arrived in ED. rn 12:47 Angel Franklin MD is Attending Physician. rn 13:05 Inserted saline lock: 22 gauge in right wrist, using aseptic technique. Blood collected.nj1 13:19 Laurent cath inserted, using sterile technique, 16 Fr., by ED staff, balloon inflated, to nj1 gravity drainage, urine specimen collected. other Inserted by Dereje Longoria RN. 13:31 Josephine Fallon, [place] is Primary Nurse. nj1 13:38 Triage completed. nj1 13:41 Arm band placed on right wrist. nj1 13:43 CT Head Brain wo Cont In Process Unspecified. EDMS 13:45 Patient has correct armband on for positive identification. Placed in gown. Bed in low nj1 position. Call light in reach. Side rails up X 1. Provided Education on: call light, fall precautions. Client placed on continuous cardiac and pulse oximetry monitoring. NIBP monitoring applied. panel monitor on. 15:35 Notified ED physician of other see notes. nj1 15:50 Laurent cath removed intact, balloon deflated. nj1 16:00 No provider procedures requiring assistance completed. nj1 16:00 IV discontinued, intact, bleeding controlled, Pressure dressing applied. nj1 Administered Medications: 12:41 Drug: NS 0.9% IV 1000 ml IV at 1000 ml once {Note: Initiated by EMS.} Route: IV; Rate: nj1 1000 ml; Site: left forearm; 14:00 Follow up: IV Status: Completed infusion; IV Intake: 1000ml nj1 12:58 Drug: Naloxone IVP 0.4 mg IVP once Route: IVP; Site: left forearm; nj1 15:15 Follow up: Response: No adverse reaction nj1 13:25 Drug: NS 0.9% IV 1000 ml IV at 1 bolus Per protocol; 1000 mL bolus Route: IV; Rate: 1 nj1 bolus; Site: left forearm; 15:00 Follow up: IV Status: Completed infusion; IV Intake: 1000ml nj1 Medication: 16:00 VIS not applicable for this client. nj1 Intake: 14:00 IV: 1000ml; Total: 1000ml. nj1 15:00 IV: 1000ml; Total: 2000ml. nj1 Outcome: 15:38 Discharge ordered by . rn 16:00 Discharged to home via wheelchair, nj1 16:00 Condition: improved 16:00 Discharge instructions given to patient, Instructed on discharge instructions, follow up and referral plans. safety practices, Demonstrated understanding of instructions, follow-up care, 16:04 Patient left the ED. nj1 Signatures: Dispatcher [employer] EDMS Angel Franklin MD MD rn Jaco, Norma, RN RN nj1 Corrections: (The following items were deleted from the chart) 13:47 13:06 BP 83 / 49; Pulse 79bpm; Resp 12bpm; Spontaneous; Pulse Ox 97% 4 lpm Nasal nj1 Cannula; nj1 16:12 12:41 Chief complaint: EMS states: Altered mental status, weakness and urinary nj1 incontinence since . Fall today. nj1 16:13 15:40 Reassessment: Pt still in restroom. no s/s of distress noted. denies help. nj1 awaiting for him to come back to room to continue monitoring. nj1
--- NOTE | 2024-04-27 15:39 | EDPHYS ---
Physician Documentation [facility] Name: Mauro Parsons Age: 58 yrs Sex: Male : 1965 Arrival Date: 04/27/2024 Time: 12:42 Bed 13 Private MD: ED Physician Angel Franklin HPI: 04/27 12:55 This 58 yrs old Male presents to ER via Unassigned with complaints of AMS. rn 12:55 The patient presents with confusion, decreased responsiveness. Onset: The rn symptoms/episode began/occurred at an unknown time. Possible causes: unknown. Current symptoms: In the emergency department the patient's symptoms are unchanged from the initial presentation. It is unknown whether or not the patient has had similar symptoms in the past. Patient brought in by EMS, his mother was concerned for confusion and altered mental status. Unknown onset. Told by EMS that he might of began yesterday. EMS reports somnolence but awakens to voice, hypertension, slow respirations. No meds given. Patient states "might have been the drugs I took with friends". Patient denies any injury or pain. No vomiting or diarrhea. Mother told EMS he has been falling lately.. Historical: - Allergies: 13:40 No Known Allergies; nj1 - Home Meds: 13:40 Suboxone sublingual [Active]; nj1 - Immunization history:: Adult Immunizations unknown. - Infectious Disease History:: unable to obtain. - Family history:: not pertinent. - Social history:: Smoking status: unknown. - Hospitalizations: : No recent hospitalization is reported. ROS: 12:55 Constitutional: Negative for fever, chills, and weight loss, Neck: Negative for injury, rn pain, and swelling, Cardiovascular: Negative for chest pain, palpitations, and edema, Respiratory: Negative for shortness of breath, cough, wheezing, and pleuritic chest pain, Abdomen/GI: Negative for abdominal pain, nausea, vomiting, diarrhea, and constipation, Back: Negative for injury and pain, MS/Extremity: Negative for injury and deformity, Skin: Negative for injury, rash, and discoloration, Neuro: Negative for headache, numbness, tingling, and seizure, Exam: 12:55 Constitutional: This is a well developed, well nourished patient who is somnolent but rn awakens to voice and tactile stimulation. Sits in bed with legs crossed, appears comfortable. Head/Face: Normocephalic, atraumatic. Eyes: Right pupil slightly larger diameter than left pupil, no nystagmus. ENT: dry MM Cardiovascular: Regular rate and rhythm. No pulse deficits. Respiratory: Bradypnea, clear Abdomen/GI: Soft, nontender, no masses MS/ Extremity: Pulses equal, no cyanosis. Neurovascular intact. Full, normal range of motion. Equal circumference. Neuro: Somnolent but awakens easily, oriented to person place and situation. Strength 4 out of 5 throughout and exhibits generalized weakness, difficult to tell if from lack of effort. Sensation intact and withdraws from pain in all 4 extremities. Able to reposition himself in bed and kick off his own flip-flops. Vital Signs: 12:41 BP 73 / 43; Pulse 79; Resp 10; Pulse Ox 94% on 4 lpm NC; Weight 122.47 kg; Height 5 ft. nj1 11 in. ; 13:06 BP 83 / 49; Pulse 79; Resp 12 S; Pulse Ox 97% on 4 lpm NC; MAP 61 mmHg; nj1 13:20 BP 92 / 59; Pulse 80; Resp 14; Pulse Ox 95% on 4 lpm NC; MAP 72 mmHg; nj1 14:00 BP 103 / 78; Pulse 74; Resp 18; Pulse Ox 97% on 4 lpm NC; MAP 87 mmHg; nj1 14:29 BP 123 / 73; Pulse 82; Resp 16; Pulse Ox 100% on 4 lpm NC; nj1 14:59 BP 115 / 84; Pulse 83; Resp 17; Pulse Ox 99% on 4 lpm NC; nj1 12:41 Body Mass Index 37.66 (122.47 kg, 180.34 cm) nj1 MDM: 12:47 Patient medically screened. rn 13:10 ED course: Patient had partial response to 0.4 mg of Narcan. More alert, increased rn respiratory rate and opens eyes easier. Patient states he took several Xanax last night. Denies suicidal intent.. 15:37 Differential Diagnosis: electrolyte abnormality, alcohol intoxication, hypoglycemia, rn intracranial bleed, overdose, volume depletion. Data reviewed: vital signs, nurses notes, lab test result(s), EKG, radiologic studies, CT scan, and as a result, I will discharge patient. Counseling: I had a detailed discussion with the patient and/or guardian regarding the historical points, exam findings, and any diagnostic results supporting the discharge/admit diagnosis, lab results, radiology results, the need for outpatient follow up, to return to the emergency department if symptoms worsen or persist or if there are any questions or concerns that arise at home. Response to treatment: the patient's symptoms have markedly improved after treatment, and as a result, I will discharge patient. Special discussion: I discussed with the patient/guardian in detail that at this point there is no indication for admission to the hospital. It is understood, however, that if the symptoms persist or worsen the patient needs to return immediately for re-evaluation. ED course: Patient now much more alert, ambulatory to bathroom, ripped off all of his leads and cardiac monitoring and wants to go home. Patient states took a few Xanax which is consistent with his drug screen. I have personally reviewed all of the results, including but not limited to blood tests and imaging deemed necessary to safely discharge this patient at this time. All results given to and printed out for patient. I personally went over all the results with the patient and answered all questions. Patient will follow-up with PCP and or specialist as discussed. Return precautions given and understood.. 04/27 12:48 Order name: Acetaminophen; Complete Time: 14:04/27 12:48 Order name: Basic Metabolic Panel; Complete Time: :04/27 12:48 Order name: CBC with Diff; Complete Time: 14:04/27 12:48 Order name: ETOH Level; Complete Time: 14:04/27 12:48 Order name: Hepatic Function; Complete Time: 14:04/27 12:48 Order name: PT-INR; Complete Time: 14:04/27 12:48 Order name: Ptt, Activated; Complete Time: 14:04/27 12:48 Order name: Salicylate; Complete Time: 14:04/27 12:48 Order name: Urinalysis w/ reflexes; Complete Time: 14:04/27 12:48 Order name: Urine Drug Screen; Complete Time: 14:04/27 12:48 Order name: SARS RAPID; Complete Time: 14:04/27 13:35 Order name: Glucose, Ancillary Testing; Complete Time: 14:03 EDMS 04/27 12:48 Order name: CT Head Brain wo Cont; Complete Time: 14:30 rn 04/27 12:48 Order name: EKG; Complete Time: 12:48 rn 04/27 12:48 Order name: EKG - Nurse/Tech; Complete Time: 13:33 rn 04/27 12:48 Order name: IV Saline Lock; Complete Time: 13:33 rn 04/27 12:48 Order name: Labs collected and sent; Complete Time: 13:33 rn 04/27 14:01 Order name: Laurent; Complete Time: 14:01 nj1 Administered Medications: 12:41 Drug: NS 0.9% IV 1000 ml IV at 1000 ml once {Note: Initiated by EMS.} Route: IV; Rate: nj1 1000 ml; Site: left forearm; 14:00 Follow up: IV Status: Completed infusion; IV Intake: 1000ml nj1 12:58 Drug: Naloxone IVP 0.4 mg IVP once Route: IVP; Site: left forearm; nj1 15:15 Follow up: Response: No adverse reaction nj1 13:25 Drug: NS 0.9% IV 1000 ml IV at 1 bolus Per protocol; 1000 mL bolus Route: IV; Rate: 1 nj1 bolus; Site: left forearm; 15:00 Follow up: IV Status: Completed infusion; IV Intake: 1000ml nj1 Disposition Summary: 04/27/24 15:38 Discharge Ordered Notes: Location: Home rn Problem: new rn Symptoms: have improved rn Condition: Stable rn Diagnosis - Adverse effect of benzodiazepines rn Followup: rn - With: Private Physician - When: As needed - Reason: Recheck today's complaints, Re-evaluation by your physician Discharge Instructions: - Discharge Summary Sheet rn - Benzodiazepine Overdose rn Forms: - Medication Reconciliation Form rn - Antibiotic rn hemodialysis - Prescription Opioid Use rn - Patient Portal Instructions rn - Leadership Thank You Letter rn Signatures: Dispatcher [employer] EDAngel Silver MD MD rn Jaco, Norma, RN RN nj1 Corrections: (The following items were deleted from the chart) 12:48 12:48 ACETAMINOPHEN+C.LAB.BRZ ordered. EDMS EDMS 12:48 12:48 BASIC METABOLIC PANEL+C.LAB.BRZ ordered. EDMS EDMS 12:48 12:48 CBC+H.LAB.BRZ ordered. EDMS EDMS 12:48 12:48 ETHANOL+C.LAB.BRZ ordered. EDMS EDMS 12:48 12:48 HEPATIC FUNCTION+C.LAB.BRZ ordered. EDMS EDMS 12:48 12:48 PROTIME (+INR)+COAG.LAB.BRZ ordered. EDMS EDMS 12:48 12:48 PTT, ACTIVATED+COAG.LAB.BRZ ordered. EDMS EDMS 12:48 12:48 SALICYLATE+C.LAB.BRZ ordered. EDMS EDMS 12:48 12:48 Urinalysis+U.LAB.BRZ ordered. EDMS EDMS 12:48 12:48 URINE DRUG SCREEN+UC.LAB.BRZ ordered. EDMS EDMS 12:48 12:48 SARS-COV-2 Antigen Rapid+I.LAB.BRZ ordered. EDMS EDMS 12:50 12:48 Suicide Screening ([place]) ordered. rn rn
[2024-04-27 16:37] VITALS: BP 115/84; O2SAT 99
--- NOTE | 2024-04-28 10:31 | EKG ---
Test Date: 2024-04-27 Test Time: 13:07:40 Pension Examiner: ANKITA MEASUREMENT RESULTS: Intervals: Rate: 78 VA: 158 QRSD: 98 QT: 418 QTc: 476 [place]: P: 48 VA: 158 QRS: 38 T: -2 INTERPRETIVE STATEMENTS: Normal sinus rhythm Nonspecific T wave abnormality Prolonged QT Abnormal ECG Compared to ECG 01/16/2017 23:44:27 T-wave abnormality now present Prolonged QT interval now present Sinus tachycardia no longer present Left-axis deviation no longer present Myocardial infarct finding no longer present Electronically Signed On 04-28-24 10:30:23 CDT by Zaire Hernandez
== END 2024-04-27 16:04 | disposition home or self-care (01) ==
LOC: ER 12:42
DX: R41.82 Altered mental status, unspecified (principal); T42.4X5A Adverse effect of benzodiazepines, initial encounter; Z11.52 Encounter for screening for COVID-19
CPT/HCPCS: 96361; 93005; 85025; 81001; 80048; 36415; 85610; 82947; 80076; 85730; 80307; 70450; 51702; 96374; 99291; 99292; 80143; 80179; 82077; 87811; J2310; J7030

== ENCOUNTER 2024-04-28 01:20 | Emergency (ER) | payer OTHER ==
[2024-04-28] MEDS ORDERED: METOCLOPRAMIDE 10 MG/2mL INJ ONE (02:21)
[2024-04-28] MEDS ORDERED: NA CHLORIDE 0.9% 1,000 ML ONE (02:22)
[2024-04-28 02:32] LABS: Absolute Lymphocytes (CBC) 0.6 K/uL (0.7-4.9); Absolute Monocytes 1.2 K/uL (0.1-1.3); Absolute Neutrophil 7.1 K/uL (1.8-8.0); Basophils % 0.1 % (0-1.3); Eosinophils % 0.1 % (0-4.4); Hematocrit 36.1 % (39.6-49.0); Hemoglobin 11.7 g/dL (13.6-17.9); Lymphocytes % 6.9 % (15.3-44.8); MCH 27.3 pg (27.0-35.0); MCHC 32.4 g/dL (32.0-36.0); MCV 84.1 fL (80-100); Monocytes % 13.1 % (3.3-12.3); Neutrophils % 79.8 % (41.7-73.7); Nucleated Red Blood Cells % 0.1 % (0-0); Platelets 232 thou/uL (152-406); RBC Red Blood Cell Count 4.29 M/uL (4.33-5.43); Red Cell Distribution Width 15.2 % (12.1-15.2)
[2024-04-28 02:47] LABS: PTT, Activated Partial Thromb 31.9 SECONDS (24.3-36.9); Protime INR 1.19
[2024-04-28 03:16] LABS: ALT/SGPT 25 U/L (16-61); AST/SGOT 34 U/L (15-37); Albumin 3.1 g/dL (3.4-5.0); Albumin/Globulin Ratio 0.9 (1.1-1.8); Alkaline Phosphatase 110 U/L (45-117); Anion Gap 10.2 mEq/L (5.0-15.0); BUN Blood Urea Nitrogen 18 mg/dL (7-18); Bicarbonate 28 mEq/L (21-32); Bilirubin Total 0.3 mg/dL (0.2-1.0); Globulin 3.5 g/dL (2.3-3.5); Glomerular Filtration Rate 38 ml/min (=/>90); Glucose Level 162 mg/dL (74-106); Potassium 4.2 mEq/L (3.5-5.1); Protein, Total 6.6 g/dL (6.4-8.2); Sodium Level 136 mEq/L (136-145)
[2024-04-28 03:17] LABS: Bilirubin Direct < 0.2 mg/dL (0-0.2); Bilirubin Indirect, Calculated 0.1 mg/dL (0.2-0.8)
--- NOTE | 2024-04-28 05:43 | ER ---
Nurse's Notes [facility] Name: Mauro Parsons Age: 58 yrs Sex: Male : 1965 Arrival Date: 04/28/2024 Time: 01:20 Bed 18 Private MD: Diagnosis: Adverse effect of benzodiazepines;Weakness;Altered mental status, unspecified;Unspecified kidney failure-CHRONIC;Adverse effect of other drugs, medicaments and biological substances Presentation: 04/28 01:20 Chief complaint: EMS states: AMS, aox2. Pt was confused, naked and had defecated on pc2 self on scene. Coronavirus screen: At this time, the client does not indicate any symptoms associated with coronavirus-19. Ebola Screen: No symptoms or risks identified at this time. Initial Sepsis Screen: Does the patient meet any 2 criteria? No. Patient's initial sepsis screen is negative. Does the patient have a suspected source of infection? No. Patient's initial sepsis screen is negative. Risk Assessment: Do you want to hurt yourself or someone else? Unable to obtain. Onset of symptoms was April 28, 2024. Care prior to arrival: None. 01:20 Method Of Arrival: EMS: [facility] pc2 01:20 Acuity: JENNYFER 3 pc2 Triage Assessment: 01:34 General: Appears obese, unkempt, Behavior is calm, drowsy. Pain: Denies pain. Neuro: pc2 Nunez Agitation-Sedation Scale (RASS): -1 Drowsy Level of Consciousness is confused, lethargic, Oriented to person, place. Cardiovascular: Patient's skin is warm and dry. Respiratory: Airway is patent Respiratory effort is even, unlabored, Respiratory pattern is regular, symmetrical. GI: Abdomen is round non-distended. : No signs and/or symptoms were reported regarding the genitourinary system. Derm: No signs and/or symptoms reported regarding the dermatologic system. Musculoskeletal: No signs and/or symptoms reported regarding the musculoskeletal system. Historical: - Allergies: 02:17 No Known Allergies; pc2 - Home Meds: 02:17 Suboxone sublingual [Active]; pc2 - PMHx: 02:17 Anxiety; pc2 - Immunization history:: Adult Immunizations unknown. - Infectious Disease History:: Denies. - Social history:: Smoking status: unknown. Screenin:38 [facility] ED Fall Risk Assessment (Adult) History of falling in the last 3 months, pc2 including since admission No falls in past 3 months (0 pts) Confusion or Disorientation Yes (5 pts) Intoxicated or Sedated No (0 pts) Impaired Gait No (0 pts) Mobility Assist Device Used No (0 pt) Altered Elimination Yes (1 pt) Score/Fall Risk Level 3 or more points = High Risk Oriented to surroundings, Hourly rounding (assess needs \T\ fall precautionary measures) done. Abuse screen: Denies threats or abuse. Denies injuries from another. Nutritional screening: No deficits noted. Tuberculosis screening: No symptoms or risk factors identified. Assessment: 01:30 Reassessment: see triage. pc2 02:30 Reassessment: Patient appears in no apparent distress at this time. Resting in bed, pc2 resp even and unlabored. Cardiac monitoring continues. NAD noted. 03:30 Reassessment: No changes from previously documented assessment. Patient and/or family pc2 updated on plan of care and expected duration. Pain level reassessed. General:. 04:18 General: Pt observed resting with eyes closed, cardiac and o2 monitoring continues. NAD pc2 noted. . 05:42 Reassessment: Patient is alert, oriented x 3, equal unlabored respirations, skin pc2 warm/dry/pink. Patient denies pain at this time. 06:30 General: Pt awake and alert at this time, ambulating around room. VSS. NAD noted. Pt is pc2 requesting to go home. Dr. Brice made aware. A bedside to speak with patient. 07:15 Reassessment: Pt discharged to mother's care. pc2 Vital Signs: 01:20 BP 121 / 60; Pulse 108; Resp 18; Temp 98; Pulse Ox 95% on R/A; pc2 02:40 BP 89 / 55; Pulse 107; Resp 20; Pulse Ox 95% ; pc2 03:15 BP 115 / 57; Pulse 100; Resp 18; Pulse Ox 97% on R/A; pc2 03:43 BP 127 / 70; Pulse 100; Resp 18; Pulse Ox 95% on R/A; pc2 ED Course: 01:22 Patient arrived in ED. sb4 01:24 Jay Vinson PA is PHCP. cp 01:24 Jay Brice MD is Attending Physician. cp 01:32 Patient placed in an exam room, on a stretcher, in view of staff members, on cardiac pc2 monitor, on pulse oximetry. 01:35 Patient has correct armband on for positive identification. Bed in low position. Call pc2 light in reach. Side rails up X2. Adult w/ patient. Provided Education on: POC and time frame. 02:04 Inserted saline lock: 20 gauge in right antecubital area, using aseptic technique. oe Blood collected. 02:05 EKG done, by ED staff, reviewed by Jay BREWSTER. oe 02:06 Acetaminophen Sent. oe 02:06 Basic Metabolic Panel Sent. oe 02:06 CBC with Diff Sent. oe 02:06 ETOH Level Sent. oe 02:06 Hepatic Function Sent. oe 02:07 PT-INR Sent. oe 02:07 Ptt, Activated Sent. oe 02:07 Urinalysis w/ reflexes Sent. oe 02:07 Salicylate Sent. oe 02:14 Shyanne Foote, RN is Primary Nurse. pc2 02:17 Triage completed. pc2 02:40 X-ray(s) taken. pc2 02:52 XRAY Chest (1 view) In Process Unspecified. EDMS 05:[address] Brice with [facility] from the [place] transfer center. eb 06:38 administrative approval given by Tashia Salas/ patient has been accepted to the [place] eb ED. Dr. Radha Guidry has accepted the patient without conference with Dr. Brice. report to be called to [phone]. 06:48 Dorian Guerrero MD is Referral Physician. estefanía 07:16 No provider procedures requiring assistance completed. IV discontinued, intact, pc2 bleeding controlled, No redness/swelling at site. Pressure dressing applied. Administered Medications: 02:18 Drug: NS 0.9% IV 1000 ml IV at 1 bolus Per protocol; 1000 mL bolus Route: IV; Rate: 1 pc2 bolus; Site: right antecubital; 02:45 Follow up: Response: No adverse reaction; IV Status: Completed infusion; IV Intake: pc2 1000ml 02:18 Drug: metoCLOPramide IVP 10 mg IVP once; over 1 to 2 minutes Route: IVP; Site: right pc2 antecubital; 02:40 Follow up: Response: No adverse reaction pc2 06:05 CANCELLED (Physician Discretion): ns 0.9% 1000 ml IV at 125 ml/hr continuous pc2 06:05 CANCELLED (Physician Discretion): morphineor iv 4 mg IVP once over 4 mins pc2 06:05 CANCELLED (Physician Discretion): ondansetron 4 mg IVP once; over 2 minutes pc2 Medication: 03:44 VIS not applicable for this client. pc2 Intake: 02:45 IV: 1000ml; Total: 1000ml. pc2 Outcome: 05:42 Discharge ordered by . ruben 06:15 ER care complete, transfer ordered by . estefanía 06:43 Discharge ordered by . estefanía 07:16 Discharged to home ambulatory, with family, pc2 07:16 Condition: stable 07:16 Discharge instructions given to patient, family, Instructed on discharge instructions, follow up and referral plans. Demonstrated understanding of instructions, follow-up care, 07:17 Patient left the ED. pc2 Signatures: Dispatcher [employer] EDMS Jay Brice MD MD cha Page, Corey, PA PA Shashank Gasca Elizabeth eb Brown, Sophia PA-C PA-C sb4 Shyanne Foote, RN RN pc2 Corrections: (The following items were deleted from the chart) 02:17 02:13 Chief complaint: pc2 pc2
--- NOTE | 2024-04-28 05:43 | EDPHYS ---
Physician Documentation [facility] Name: Mauro Parsons Age: 58 yrs Sex: Male : 1965 Arrival Date: 04/28/2024 Time: 01:20 Bed 18 Private MD: ED Physician Jay Brice HPI: 04/28 01:30 This 58 yrs old Male presents to ER via EMS with complaints of Altered Mental Status. cp 01:30 The patient presents with decreased responsiveness. cp 01:30 Onset: The symptoms/episode began/occurred yesterday. Possible causes: drug use, cp benzodiazepines, neurontin. Associated signs and symptoms: Pertinent negatives: abdominal pain, chest pain, diaphoresis, vomiting, fever. Current symptoms: In the emergency department the patient's symptoms are unchanged from the initial presentation, despite EMS interventions. Historical: - Allergies: 02:17 No Known Allergies; pc2 - Home Meds: 02:17 Suboxone sublingual [Active]; pc2 - PMHx: 02:17 Anxiety; pc2 - Immunization history:: Adult Immunizations unknown. - Infectious Disease History:: Denies. - Social history:: Smoking status: unknown. ROS: 01:35 Constitutional: Negative for fever, poor PO intake, cp 01:35 Cardiovascular: Negative for chest pain, cp 01:35 Respiratory: Negative for wheezing, 01:35 Abdomen/GI: Negative for active vomiting, Exam: 01:40 Constitutional: The patient appears in no acute distress, non-diaphoretic, non-toxic, cp well developed, well nourished, 01:40 Head/Face: Normocephalic, atraumatic. cp 01:40 Eyes: Pupils: equal, round, and reactive to light and accomodation, Extraocular movements: intact throughout, Conjunctiva: normal, no exudate, no injection, Sclera: no appreciated abnormality, Lids and lashes: appear normal, bilaterally, 01:40 ENT: External ear(s): are unremarkable, Nose: is normal, Mouth: Lips: moist, Oral mucosa: pink and intact, moist, Posterior pharynx: is normal, airway is patent, no erythema, no exudate, 01:40 Neck: ROM/movement: is normal, is supple, no meningismus, no nuchal rigidity, 01:40 Chest/axilla: Inspection: normal, Palpation: is normal, no crepitus, no tenderness, 01:40 Cardiovascular: Rate: tachycardic, Rhythm: regular, Edema: is not appreciated, JVD: is not appreciated, 01:40 Respiratory: the patient does not display signs of respiratory distress, Respirations: normal, no use of accessory muscles, no retractions, labored breathing, is not present, Breath sounds: are clear throughout, no decreased breath sounds, no stridor, no wheezing, 01:40 Abdomen/GI: Inspection: obese Palpation: abdomen is soft and non-tender, in all quadrants, 01:40 Back: pain, is absent, 01:40 Neuro: Orientation: to person, place, situation, Mentation: able to follow commands, slow to respond, sleepy, Motor: moves all fours, 01:47 ECG was reviewed by the Attending Physician. cp Vital Signs: 01:20 BP 121 / 60; Pulse 108; Resp 18; Temp 98; Pulse Ox 95% on R/A; pc2 02:40 BP 89 / 55; Pulse 107; Resp 20; Pulse Ox 95% ; pc2 03:15 BP 115 / 57; Pulse 100; Resp 18; Pulse Ox 97% on R/A; pc2 03:43 BP 127 / 70; Pulse 100; Resp 18; Pulse Ox 95% on R/A; pc2 MDM: 01:24 Patient medically screened. estefanía 05:36 Differential Diagnosis: CVA, electrolyte abnormality, alcohol intoxication, cp hypoglycemia, meningitis, overdose, pneumonia, seizure, sepsis, volume depletion. Data reviewed: vital signs, nurses notes, lab test result(s), EKG, and as a result, I will discharge patient. Independent interpretation of the following test(s) in the Emergency Department EKG: See my EKG interpretation above. Counseling: I had a detailed discussion with the patient and/or guardian regarding the historical points, exam findings, and any diagnostic results supporting the discharge/admit diagnosis, lab results, radiology results. Response to treatment: the patient's symptoms have markedly improved after treatment, and as a result, I will discharge patient. ED course: Patient reports taking prescribed Neurontin. Denies any suicidal ideations. 06:45 Consideration of Admission/Observation Escalation of care including estefanía admission/observation considered. I considered the following discharge prescriptions or medication management in the emergency department Medications were administered in the Emergency Department. See MAR. Test considered but Not performed: CT: NO CT ABD/PELVIS. Historians other than the Patient: EMS: EMS WELL INFORMED, MOM INFORMED AND VERY HELPFUL. Family Member: MOM WELL INFORMED. Care significantly affected by the following chronic conditions: Hypertension, Obesity, Chronic Kidney Disease. 04/28 01:24 Order name: Acetaminophen; Complete Time: 04:24 cp 04/28 01:24 Order name: Basic Metabolic Panel; Complete Time: 04:24 cp 04/28 04:24 Interpretation: Normal except: GLUC 162; CRE 1.99; GFR 38. cp 04/28 01:24 Order name: CBC with Diff; Complete Time: 02:58 cp 04/28 02:58 Interpretation: Normal except: RBC 4.29; HGB 11.7; HCT 36.1; BHARATH% 79.8; LYM% 6.9; MN% cp 13.1; LYMA 0.6. 04/28 01:24 Order name: ETOH Level; Complete Time: 02:58 cp 04/28 01:24 Order name: Hepatic Function; Complete Time: 04:24 cp 04/28 04:25 Interpretation: Normal except: IBILI, CALC 0.1; ALB 3.1. cp 04/28 01:24 Order name: PT-INR; Complete Time: 02:58 cp 04/28 01:24 Order name: Ptt, Activated; Complete Time: 02:58 cp 04/28 01:24 Order name: Salicylate; Complete Time: 02:58 cp 04/28 01:25 Order name: XRAY Chest (1 view) cp 04/28 01:24 Order name: EKG - Nurse/Tech; Complete Time: 01:58 cp 04/28 01:24 Order name: IV Saline Lock; Complete Time: 02:06 cp 04/28 01:24 Order name: Labs collected and sent; Complete Time: 02:06 cp 04/28 01:24 Order name: Suicide Screening ([place]); Complete Time: 04:30 cp EC:47 Rate is 113 beats/min. Rhythm is regular. CA interval is normal. QRS interval is cp normal. QT interval is normal. T waves are Inverted in lead aVR. Interpreted by me. Reviewed by me. Administered Medications: 02:18 Drug: NS 0.9% IV 1000 ml IV at 1 bolus Per protocol; 1000 mL bolus Route: IV; Rate: 1 pc2 bolus; Site: right antecubital; 02:45 Follow up: Response: No adverse reaction; IV Status: Completed infusion; IV Intake: pc2 1000ml 02:18 Drug: metoCLOPramide IVP 10 mg IVP once; over 1 to 2 minutes Route: IVP; Site: right pc2 antecubital; 02:40 Follow up: Response: No adverse reaction pc2 06:05 CANCELLED (Physician Discretion): ns 0.9% 1000 ml IV at 125 ml/hr continuous pc2 06:05 CANCELLED (Physician Discretion): morphineor iv 4 mg IVP once over 4 mins pc2 06:05 CANCELLED (Physician Discretion): ondansetron 4 mg IVP once; over 2 minutes pc2 Disposition: 06:23 Co-signature as Attending Physician, Jay Brice MD I agree with the assessment and estefanía plan of care. Disposition Summary: 04/28/24 06:43 Discharge Ordered Notes: Location: Home(04/28/24 06:43) estefanía Problem: an acute exacerbation(04/28/24 06:43) estefanía Symptoms: have improved(04/28/24 06:43) estefanía Condition: Fair(04/28/24 06:43) estefanía Diagnosis - Adverse effect of benzodiazepines(04/28/24 06:43) estefanía - Weakness(04/28/24 06:43) estefanía - Altered mental status, unspecified(04/28/24 06:43) estefanía - Unspecified kidney failure - CHRONIC estefanía - Adverse effect of other drugs, medicaments and biological substances estefanía Followup: estefanía - With: Private Physician - When: 2 - 3 days - Reason: Recheck today's complaints, Continuance of care, Re-evaluation by your physician Followup: estefanía - With: Dorian Guerrero MD - When: 2 - 3 days - Reason: Recheck today's complaints, Re-evaluation by your physician Discharge Instructions: - Discharge Summary Sheet estefanía - Food Choices to Help Relieve Diarrhea, Adult estefanía - Diarrhea, Adult estefanía - Substance Use Disorder estefanía - Benzodiazepine Overdose estefanía - Weakness estefanía - Diarrhea, Adult, [id number] estefanía - Weakness, [id number] estefanía - Chronic Kidney Disease, Adult, [id number] estefanía - Substance Use Disorder and Mental Illness estefanía - Supporting Someone With Substance Use Disorder estefanía Forms: - Medication Reconciliation Form estefanía - Antibiotic Education estefanía - Prescription Opioid Use estefanía - Patient Portal Instructions estefanía - Leadership Thank You Letter estefanía Signatures: Dispatcher [employer] Jay Sanchez MD MD cha Page, Corey PA PA cp Shyanne Foote, RN RN pc2 Corrections: (The following items were deleted from the chart) 06:05 05:25 NS 0.9% IV 1000 ml IV at 125 ml/hr continuous ordered. estefanía pc2 06:05 05:25 morphine IVP or IV 4 mg IVP once over 4 mins ordered. estefanía pc2 06:05 05:25 Ondansetron IVP 4 mg IVP once; over 2 minutes ordered. estefanía pc2 06:09 05:42 Home cp estefanía 06:09 05:42 new cp estefanía 06:09 05:42 have improved cp estefanía 06:09 05:42 Stable cp estefanía 06:09 05:42 Unspecified adverse effect of drug or medicament cp estefanía 06:40 06:15 to [facility] estefanía estefanía 06:40 06:15 [place] estefanía estefanía 06:40 06:15 Higher level of care estefanía estefanía 06:40 06:15 Fair estefanía estefanía 06:40 06:15 new estefanía estefanía 06:40 06:15 have improved estefanía estefanía 06:40 06:15 Altered mental status, unspecified estefanía estefanía 06:40 06:15 Adverse effect of benzodiazepines - ABUSE estefanía estefanía 06:40 06:15 Acute kidney failure, unspecified estefanía estefanía 06:40 06:15 Weakness estefanía estefanía 06:40 06:15 Dehydration estefanía estefanía
[2024-04-28 07:37] VITALS: BP 127/70; TEMP 98; O2SAT 95
--- NOTE | 2024-04-28 10:30 | EKG ---
Test Date: 2024-04-28 Test Time: 01:40:56 Sales Supervisor: RAINA MEASUREMENT RESULTS: Intervals: Rate: 113 GA: 132 QRSD: 92 QT: 372 QTc: 510 [place]: P: 81 GA: 132 QRS: 20 T: 68 INTERPRETIVE STATEMENTS: Sinus tachycardia Otherwise normal ECG Compared to ECG 04/27/2024 13:07:40 Sinus rhythm no longer present T-wave abnormality no longer present Prolonged QT interval no longer present Electronically Signed On 04-28-24 10:29:58 CDT by Zaire Hernandez
--- NOTE | 2024-04-30 11:02 | RAD REPORT ---
EXAM DESCRIPTION: RAD - Chest Single View - 04/28/2024 2:50 am CLINICAL HISTORY: Vomiting COMPARISON: None. FINDINGS: Single frontal radiograph view of the chest. Cardiomediastinal silhouette: Atherosclerotic calcification of thoracic aorta. Heart is not enlarged. Lungs: No consolidation, pneumothorax, or pleural effusion. Low lung volumes. Bones: No acute osseous abnormality. Degenerative change of the spine and shoulders. Upper abdomen: No abnormality identified. IMPRESSION: 1. No acute pulmonary process identified. Electronically signed by: Nino Busch DO 04/28/2024 03:24 AM CDT RP [id number] Due to temporary technical issues with the PACS/Fluency reporting system, reports are being signed by the in house radiologist without review as a courtesy to ensure prompt reporting. The interpreting r adiologist is fully responsible for the content of the report.
== END 2024-04-28 07:17 | disposition home or self-care (01) ==
LOC: ER 01:20
DX: R41.82 Altered mental status, unspecified (principal); T42.4X5A Adverse effect of benzodiazepines, initial encounter; R53.1 Weakness; N18.9 Chronic kidney disease, unspecified; T50.995A Adverse effect of other drugs, medicaments and biological substances, initial encounter; F41.9 Anxiety disorder, unspecified
CPT/HCPCS: 93005; 85025; 80048; 36415; 85610; 80076; 85730; 71045; 96374; 99285; 80143; 80179; 82077; J2765; J7030

== ENCOUNTER 2024-11-20 07:58 | Emergency (ER) | payer OTHER ==
[2024-11-20 08:32] LABS: Specific Gravity > 1.030 (1.005-1.030); Sqamous Epithelial <5 /HPF (None Seen); Urine Bacteria None Seen /HPF (<20); Urine Bilirubin NEGATIVE (Negative); Urine Blood Negative (Negative); Urine Clarity Clear (Clear); Urine Color Light-Yellow (Yellow); Urine Culture Reflex Order NOT NEEDED; Urine Glucose 4+ (Over) (Negative); Urine Ketones NEGATIVE (Negative); Urine Microscopic Reflex YN ORDER UMIC; Urine Mucus Slight /HPF (None Seen); Urine Nitrite NEGATIVE (Negative); Urine Protein TRACE (Negative); Urine RBC <5 /HPF (None Seen); Urine Urobilinogen Normal (Normal); Urine WBC <5 /HPF (<5); Urine pH 5.5 (5.0-7.0)
[2024-11-20 08:40] LABS: Absolute Basophils 0.1 K/uL (0-0.5); Absolute Eosinophils 0.4 K/uL (0-0.5); Absolute Lymphocytes (CBC) 3.2 K/uL (0.7-4.9); Absolute Monocytes 0.7 K/uL (0.1-1.3); Absolute Neutrophil 5.6 K/uL (1.8-8.0); Basophils % 0.6 % (0-1.3); Eosinophils % 4.4 % (0-4.4); Hematocrit 42.4 % (39.6-49.0); Hemoglobin 13.8 g/dL (13.6-17.9); MCH 25.7 pg (27.0-35.0); MCHC 32.4 g/dL (32.0-36.0); MCV 79.4 fL (80-100); Monocytes % 6.6 % (3.3-12.3); Neutrophils % 56.4 % (41.7-73.7); Nucleated Red Blood Cells % 0.1 % (0-0); Platelets 263 thou/uL (152-406); RBC Red Blood Cell Count 5.35 M/uL (4.33-5.43); Red Cell Distribution Width 18.2 % (12.1-15.2)
[2024-11-20 09:02] LABS: ALT/SGPT 22 U/L (16-61); Albumin 3.7 g/dL (3.4-5.0); Albumin/Globulin Ratio 0.9 (1.1-1.8); Alkaline Phosphatase 163 U/L (45-117); BUN Blood Urea Nitrogen 21 mg/dL (7-18); Bicarbonate 28 mEq/L (21-32); Bilirubin Total 0.3 mg/dL (0.2-1.0); Globulin 4.3 g/dL (2.3-3.5); Glomerular Filtration Rate 71 ml/min (=/>90); Glucose Level 353 mg/dL (74-106); Lipase 19 U/L (13-75); Sodium Level 131 mEq/L (136-145); Troponin High Sensitivity 4.4 pg/mL (<58.9)
[2024-11-20 09:03] LABS: AST/SGOT < 10 U/L (15-37); Bilirubin Direct < 0.2 mg/dL (0-0.2); Bilirubin Indirect, Calculated 0.1 mg/dL (0.2-0.8)
--- NOTE | 2024-11-20 09:16 | ER ---
Nurse's Notes [facility] Name: Mauro Parsons Age: 59 yrs Sex: Male : 1965 Arrival Date: 11/20/2024 Time: 07:58 Bed 8 Private MD: Diagnosis: Hyperglycemia, unspecified Presentation: 11/20 08:00 Chief complaint: EMS states: abdominal pain, high blood pressure and high blood sugar. ko1 Coronavirus screen: At this time, the client does not indicate any symptoms associated with coronavirus-19. Ebola Screen: No symptoms or risks identified at this time. Initial Sepsis Screen: Does the patient meet any 2 criteria? No. Patient's initial sepsis screen is negative. Does the patient have a suspected source of infection? No. Patient's initial sepsis screen is negative. Risk Assessment: Do you want to hurt yourself or someone else? Patient reports no desire to harm self or others. Onset of symptoms was November 20, 2024. Care prior to arrival: Medication(s) given: Normal saline infusion, 500 mL, IV initiated. 20 GA, in the left forearm, Glucose check: 319. 08:00 Method Of Arrival: EMS: [facility] ko1 08:00 Acuity: JENNYFER 3 ko1 Triage Assessment: 08:11 General: Appears in no apparent distress. Behavior is anxious, restless. Pain: ko1 Complains of pain in abdomen. GI: Reports lower abdominal pain. Historical: - Allergies: 08:11 No Known Allergies; ko1 - Home Meds: 08:11 Suboxone sublingual [Active]; ko1 - PMHx: 08:11 Anxiety; Diabetes mellitus; Hypertensive disorder; ko1 - PSHx: 08:11 Unable to Obtain; ko1 - Immunization history:: Adult Immunizations up to date. - Infectious Disease History:: Denies. - Social history:: Smoking status: Patient/guardian denies using tobacco. - Family history:: not pertinent. - Hospitalizations: : No recent hospitalization is reported. Screenin:20 [facility] ED Fall Risk Assessment (Adult) History of falling in the last 3 months, ld1 including since admission No falls in past 3 months (0 pts) Confusion or Disorientation No (0 pts) Intoxicated or Sedated No (0 pts) Impaired Gait No (0 pts) Mobility Assist Device Used No (0 pt) Altered Elimination No (0 pt) Score/Fall Risk Level 0 - 2 = Low Risk Oriented to surroundings, Maintained a safe environment, Hourly rounding (assess needs \\T\\ fall precautionary measures) done. Abuse screen: Denies threats or abuse. Denies injuries from another. Nutritional screening: No deficits noted. Tuberculosis screening: No symptoms or risk factors identified. Assessment: 08:29 General: Appears in no apparent distress. comfortable, Behavior is calm, cooperative, ld1 appropriate for age. Pain: Complains of pain in abdomen Pain does not radiate. Pain currently is 7 out of 10 on a pain scale. Quality of pain is described as throbbing, Pain began suddenly, Is continuous. Neuro: Level of Consciousness is awake, alert, obeys commands, Oriented to person, place, time, situation. Cardiovascular: Capillary refill < 3 seconds Patient's skin is warm and dry. Respiratory: Airway is patent Respiratory effort is even, unlabored. GI: Abdomen is round non-distended, Bowel sounds present X 4 quads. Abd is soft Abdomen is tender to palpation. : No signs and/or symptoms were reported regarding the genitourinary system. EENT: No signs and/or symptoms were reported regarding the EENT system. Derm: No signs and/or symptoms reported regarding the dermatologic system. Musculoskeletal: No signs and/or symptoms reported regarding the musculoskeletal system. 09:20 Reassessment: Pt requesting to leave. D/C IV self. Walking out of ER stating "I do not ld1 want to stay.". Vital Signs: 08:00 BP 170 / 99; Pulse 97; Resp 18; Temp 98.2; Pulse Ox 99% on R/A; ko1 ED Course: 08:02 Patient arrived in ED. ko1 08:03 Angel Franklin MD is Attending Physician. rn 08:11 Triage completed. ko1 08:11 Arm band placed on right wrist. Patient placed in an exam room, on a stretcher, on ko1 clinical research monitor, on pulse oximetry, Patient notified of wait time. 08:22 Troponin High Sensitivity Sent. ko1 08:22 Basic Metabolic Panel Sent. ko1 08:22 CBC with Diff Sent. ko1 08:29 Radha Barlow RN is Primary Nurse. ld1 08:29 Urinalysis w/ reflexes Sent. ld1 09:20 Patient has correct armband on for positive identification. Placed in gown. Bed in low ld1 position. Call light in reach. Side rails up X2. Pulse ox on. NIBP on. Door closed. Noise minimized. Warm blanket given. :20 No provider procedures requiring assistance completed. Inserted saline lock: 20 gauge ld1 in left antecubital area, using aseptic technique. Blood collected. Flushed with 10 mL NS. :21 IV discontinued. ld1 Administered Medications: : Drug: NS 0.9% IV 1000 ml IV at 1000 ml once; to be given as a bolus over 60 minutes ko1 Route: IV; Rate: 1000 ml; Site: left forearm; Medication: : VIS not applicable for this client. ld1 Outcome: :15 Discharge ordered by . rn : Discharged to home ambulatory, ld1 : Condition: stable : Discharge instructions given to patient, : Patient left the ED. ld1 Signatures: Angel Franklin MD MD rn Sims, Lauren RN RN ld1 Valerie Curry, KINGSTON RN ko1 Corrections: (The following items were deleted from the chart) 08: 08:22 HEPATIC FUNCTION+C.LAB.BRZ drawn and sent. ko1 EDMS 08: 08:22 LIPASE+C.LAB.BRZ drawn and sent. ko1 EDMS
--- NOTE | 2024-11-20 09:16 | EDPHYS ---
Physician Documentation [facility] Name: Mauro Parsons Age: 59 yrs Sex: Male : 1965 Arrival Date: 11/20/2024 Time: 07:58 Bed 8 Private MD: ED Physician Angel Franklin HPI: 11/20 09:12 This 59 yrs old Male presents to ER via EMS with complaints of High Blood Sugar. rn 09:12 The patient or guardian reports hyperglycemia. Onset: The symptoms/episode rn began/occurred at an unknown time. Current symptoms: In the emergency department the patient's symptoms are unchanged from the initial presentation. The patient has experienced similar episodes in the past. Patient reports high blood sugar, has not been compliant with his medication, is supposed to be taking glipizide and metformin. Reports increased thirst but normal urination. No fever or chills. No chest pain. Told triage nurse that he had abdominal pain but denies abdominal pain to me. No vomiting.. Historical: - Allergies: 08:11 No Known Allergies; ko1 - Home Meds: 08:11 Suboxone sublingual [Active]; ko1 - PMHx: 08:11 Anxiety; Diabetes mellitus; Hypertensive disorder; ko1 - PSHx: 08:11 Unable to Obtain; ko1 - Immunization history:: Adult Immunizations up to date. - Infectious Disease History:: Denies. - Social history:: Smoking status: Patient/guardian denies using tobacco. - Family history:: not pertinent. - Hospitalizations: : No recent hospitalization is reported. ROS: 09:12 Constitutional: Negative for fever, chills, and weight loss, Eyes: Negative for injury, rn pain, redness, and discharge, ENT: Negative for injury, pain, and discharge, Cardiovascular: Negative for chest pain, palpitations, and edema, Respiratory: Negative for shortness of breath, cough, wheezing, and pleuritic chest pain, Abdomen/GI: Negative for abdominal pain, nausea, vomiting, diarrhea, and constipation, Back: Negative for injury and pain, MS/Extremity: Negative for injury and deformity, Skin: Negative for injury, rash, and discoloration, Neuro: Positive for generalized weakness and malaise Exam: 09:12 Constitutional: This is a well developed, well nourished patient who is awake, alert, rn and in no acute distress. Head/Face: Normocephalic, atraumatic. Eyes: Pupils equal round and reactive to light, extra-ocular motions intact. ENT: Dry mucous membranes Neck: No meningismus Cardiovascular: Regular rate and rhythm. No pulse deficits. Respiratory: No increased work of breathing, no retractions or nasal flaring. Abdomen/GI: Soft, non-tender MS/ Extremity: Pulses equal, no cyanosis. Neuro: Awake and alert, GCS 15 10:18 ECG was reviewed by the Attending Physician. rn Vital Signs: 08:00 BP 170 / 99; Pulse 97; Resp 18; Temp 98.2; Pulse Ox 99% on R/A; ko1 MDM: 08:03 Medical Screening Exam initiated rn 09:12 Differential diagnosis: DKA, hyperglycemia. Data reviewed: vital signs, nurses notes, glass furnace operator test result(s). ED course: Shortly after blood was obtained and sent but not resulted patient decided to leave. He told nurse he needed to leave but did not give specific reason why. Patient left the emergency room, IV was pulled. Understands risks of leaving with labs pending and imaging ordered. Return precautions given and understood.. 09:16 ED course: Patient states he has medication just has not been taking.. rn 11/20 08:08 Order name: CBC with Diff; Complete Time: 09: 11/20 08:08 Order name: Basic Metabolic Panel; Complete Time: 09: rn 11/20 08:08 Order name: Urinalysis w/ reflexes; Complete Time: 09: 11/20 08:08 Order name: Troponin High Sensitivity; Complete Time: 09: rn 11/20 08:28 Order name: Liver (Hepatic) Function; Complete Time: 09:11 EDNV 11/20 08:28 Order name: Lipase; Complete Time: 09:11 [facility] 11/20 08:08 Order name: EKG; Complete Time: 08: rn 11/20 08:08 Order name: IV Start; Complete Time: 08: rn 11/20 08:08 Order name: Glucose Level; Complete Time: : rn 11/20 08:08 Order name: EKG - Nurse/Tech; Complete Time: 08: rn 11/20 08:08 Order name: Cardiac monitoring; Complete Time: 08: rn 11/20 08:09 Order name: O2 Sat Monitoring; Complete Time: 08:13 rn 11/20 08:14 Order name: Labs collected and sent; Complete Time: :22 rn EC:18 Rate is 93 beats/min. Rhythm is regular. QRS [place] is Normal. MA interval is normal. QRS rn interval is normal. QT interval is normal. No Q waves. T waves are Normal. No ST changes noted. Clinical impression: Normal ECG. Interpreted by me. Reviewed by me. Administered Medications: Drug: NS 0.9% IV 1000 ml IV at 1000 ml once; to be given as a bolus over 60 minutes ko1 Route: IV; Rate: 1000 ml; Site: left forearm; Disposition Summary: 11/20/24 09:15 Discharge Ordered Notes: Location: Home rn Problem: an ongoing problem rn Symptoms: have improved rn Condition: Stable rn Diagnosis - Hyperglycemia, unspecified rn Followup: rn - With: Private Physician - When: As needed - Reason: Recheck today's complaints, Re-evaluation by your physician Discharge Instructions: - Discharge Summary Sheet rn - Hyperglycemia rn - Blood Glucose Monitoring, Adult rn Forms: - Medication Reconciliation Form rn - Antibiotic rn employee health - Prescription Opioid Use rn - Patient Portal Instructions rn - Leadership Thank You Letter rn Signatures: Dispatcher [employer] EDNV Angel Franklin MD MD rn Oliver, Kathy, RN RN ko1 Corrections: (The following items were deleted from the chart) 08:28 08:15 LIPASE+C.LAB.BRZ ordered. EDNV EDMS 08:28 08:15 HEPATIC FUNCTION+C.LAB.BRZ ordered. EDMS EDMS 09:11 08:15 Abdomen Pelvis W Con+CT.RAD.BRZ ordered. EDMS EDMS
[2024-11-20 16:05] VITALS: BP 170/99; TEMP 98.2; O2SAT 99
== END 2024-11-20 09:21 | disposition home or self-care (01) ==
LOC: ER 07:58
DX: E11.65 Type 2 diabetes mellitus with hyperglycemia (principal); F41.9 Anxiety disorder, unspecified
CPT/HCPCS: 36415; 80048; 80076; 81001; 83690; 84484; 85025